=== PATIENT | male | born 1950 | race Caucasian/White ===

== ENCOUNTER 2024-04-04 18:41 | Inpatient (IN) | payer MEDICARE, SELFPAY ==
[2024-04-04] VITALS (8 sets, daily range): BP systolic 111–127; BP diastolic 73–82; PULSE 61–85; RESP 16–19; TEMP 36.7–36.8; O2SAT 91–97; BMI 19.1
--- NOTE | 2024-04-04 19:00 | ECG_ITS ---
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
--- NOTE | 2024-04-04 19:16 | XRR_ITS ---
PROCEDURE INFORMATION: Exam: XR Chest Exam date and time: 04/04/2024 7:30 PM Age: 73 years old Clinical indication: Shortness of breath and other: Weakness TECHNIQUE: Imaging protocol: Radiologic exam of the chest. Views: 1 view. COMPARISON: No relevant prior studies available. FINDINGS: Lungs: There are emphysematous changes in the lungs. COPD morphology of the chest. There is scarring and/or atelectasis at the lung bases. Pleural spaces: No large pleural effusion. There is minimal blunting of the left costophrenic angle which may be related to scarring and/or pleural thickening. A small pleural effusion cannot be excluded. Heart/Mediastinum: Unremarkable. No cardiomegaly. Bones/joints: Unremarkable. XR/XR chest 1V portable [id number] IMPRESSION: There are changes consistent with COPD as described above.
--- NOTE | 2024-04-04 19:16 | USR_ITS ---
PROCEDURE INFORMATION: Exam: US Duplex Bilateral Lower Extremity Arteries Exam date and time: 04/04/2024 8:04 PM Age: 73 years old Clinical indication: Leg, lower; Patient HX: Bilateral lower extremity swelling and pain. Long-term smoker, continues smoking. ; Additional info: Claudication TECHNIQUE: Imaging protocol: Real-time ultrasound scan of the arteries of the bilateral lower extremities with 2-D louise scale, color Doppler flow and spectral waveform analysis. Images documented and saved. COMPARISON: [place] [id number] 04/04/2024 7:36 PM FINDINGS: Right common femoral artery: Normal peak systolic velocities. No hemodynamically significant stenosis. Normal waveform. Right superficial femoral artery: Proximal right superficial femoral artery peak systolic velocity is mildly elevated at 151 cm/s. This corresponds to between 30 and 49% stenosis. Normal waveform. Right popliteal artery: No occlusion or significant stenosis. Normal waveform. Right calf/foot arteries: No occlusion or significant stenosis in the visualized arteries. Normal waveforms. Dorsalis pedis artery is patent. Left common femoral artery: No occlusion or significant stenosis. Normal waveform. Left superficial femoral artery: No occlusion or significant stenosis. Normal waveform. Left popliteal artery: No occlusion or significant stenosis. Normal waveform. Left calf/foot arteries: No occlusion or significant stenosis in the visualized arteries. Normal waveforms. Dorsalis pedis artery [place] patent. US/[place] [id number] IMPRESSION: Proximal right superficial femoral artery peak systolic velocity is mildly elevated at 151 cm/s. This corresponds to between 30 and 49% stenosis.
--- NOTE | 2024-04-04 19:16 | USR_ITS ---
PROCEDURE INFORMATION: Exam: US Duplex Lower Extremity Veins, Bilateral Exam date and time: 04/04/2024 7:36 PM Age: 73 years old Clinical indication: Pain; Leg, lower; Bilateral; Additional info: Bilateral lower extremity pain and swelling. TECHNIQUE: Imaging protocol: Real-time duplex ultrasound of the bilateral extremities with 2-D louise scale, color Doppler flow and spectral waveform analysis including responses to compression and other maneuvers (when performed) with image documentation. Complete exam focused on the lower extremity veins. COMPARISON: No relevant prior studies available. FINDINGS: Right deep veins: Unremarkable. The common femoral, femoral, proximal profunda femoral and popliteal veins are patent without thrombus. Normal Doppler waveforms. Normal compressibility and/or augmentation response. Left deep veins: Unremarkable. The common femoral, femoral, proximal profunda femoral and popliteal veins are patent without thrombus. Normal Doppler waveforms. Normal compressibility and/or augmentation response. Superficial veins: Greater saphenous veins at the saphenofemoral junctions are patent bilaterally without thrombus. Soft tissues: Unremarkable. US/CV venous duplex [facility] [id number] IMPRESSION: No evidence of deep vein thrombosis.
--- NOTE | 2024-04-04 19:38 | ED_ITS ---
HPI - Extremity Problem 2 General: Chief complaint: Extremity Injury, Lower Stated complaint: SOB pulse low. no energy Time Seen by Provider: 04/04/24 19:07 History of Present Illness: 73-year-old man who presents to the [facility] room with several complaints. He says primarily he is worried about that he has been weak and having exertional dyspnea. Says he gets short of breath with very little exertion. Says he is also been extremely sleepy. He says he will fall asleep during conversation. He has been sleeping for hours at home. He does not get up out of his chair very often. [place] to the emergency room. He is also has swelling in his feet and legs. He has pain in his feet. He describes claudication symptoms that his feet hurt much worse whenever he walks. He says he has a black toe. This has since improved. He has some red wounds on his shins and calves. He says a neighbor who is a nurse has been helping him with those. He has some clear plastic bandaging over them. No fevers. He does have some cough. Related Data Allergies Allergy/AdvReac Type Severity Reaction Status Date / Time Sulfa (Sulfonamide Allergy ALGY-Rash Verified 04/04/24 19:02 Antibiotics) Review of Systems 2 Narrative: Constitutional symptoms: Negative except as documented in HPI. Skin symptoms: Negative except as documented in HPI. Eye symptoms: Negative except as documented in HPI. ENMT symptoms: Negative except as documented in HPI. Respiratory symptoms: Negative except as documented in HPI. Cardiovascular symptoms: Negative except as documented in HPI. Gastrointestinal symptoms: Negative except as documented in HPI. Genitourinary symptoms: Negative except as documented in HPI. Musculoskeletal symptoms: Negative except as documented in HPI. Neurologic symptoms: Negative except as documented in HPI. Psychiatric symptoms: Negative except as documented in HPI. Endocrine symptoms: Negative except as documented in HPI. Physical Exam 2 Narrative: EXAM NARRATIVE: General: Alert, no acute distress. Skin: Warm, dry. Red excoriated areas on the bilateral legs. Head: Normocephalic, atraumatic. Neck: Supple, trachea midline. Eye: Extraocular movements are intact. Ears, nose, mouth and throat: mucosa moist. Cardiovascular: Regular, Normal peripheral perfusion. 2-3+ pitting edema of the feet and shins. Respiratory: Lungs are clear to auscultation, respirations are non-labored, breath sounds are equal, Symmetrical chest wall expansion. Gastrointestinal: Soft, Nontender, Non distended Musculoskeletal: Normal ROM, no deformity. Neurological: Alert and oriented, No focal neurological deficit observed. Psychiatric: Cooperative, appropriate mood & affect. Course 2 Vital Signs: Vital signs: Vital Signs Temperature 98.2 F 04/04/24 18:55 Pulse Rate 72 04/04/24 20:00 Respiratory Rate 18 04/04/24 20:00 Blood Pressure 127/76 04/04/24 20:00 Pulse Oximetry 91 04/04/24 20:00 Oxygen Delivery Me thod Room Air 04/04/24 18:55 MDM - Extremity (Nontraumatic) Medical Decision Making Differential diagnosis for patient with shortness of breath includes but is not limited to and based on the above HPI, review of systems and physical exam: Pneumonia. Bronchitis. Asthma or COPD with acute exacerbation. Acute coronary syndrome / CA. Pulmonary embolism. Anxiety. Congestive heart failure. Viral infections including influenza and Covid-19. Atrial fibrillation. Anxiety. Pleural effusion. Pneumothorax. Orders placed to evaluate differential diagnosis based on the above differential, HPI and physical exam EKG: Time 1848. Rate 84. Normal sinus rhythm, No ST-T changes, no ectopy, normal MS & QRS intervals, This was reviewed and interpreted by myself the ER physician at 1851. Chest x-ray: No acute process. Hyperexpansion/emphysematous changes. No cardiomegaly. No infiltrate. No pneumothorax. This was reviewed and interpreted by myself the ER physician. Ultrasound of the lower extremities both venous and arterial. There are no occlusions and no DVT. I discussed the findings with the supply chain tech. Official read is pending. Lab Review: Laboratory results were reviewed and interpreted by myself the emergency room physician. Mild leukocytosis with a white count of 12.6. Hemoglobin is slightly low at 10.2. BUN and creatinine are elevated at 31 and 1.3. I do not have any comparison lab work. His CRP is quite elevated at 106. proBNP is elevated at 1470. With his swelling and his elevation in his proBNP he might have some CHF. However his heart size is normal I reviewed the patient's medical record. Reexamination: Patient remained stable. No increased work of breathing. No altered mental status. No focal motor deficits. Consultation: I spoke with Dr. Cuello who is on-call for the hospitalist service. He agrees to admission. Assessment and plan: Non-ST elevation myocardial infarction Congestive heart failure Edema Exertional dyspnea -I discussed the patient with the hospitalist on-call who is admitting the patient. - Discussed findings and plan with patient. Answered any questions. - All laboratory values were reviewed and interpreted personally by myself, the ER physician - All imaging was reviewed and interpreted personally by myself, the ER physician. - Evaluation and treatment of this problem were appropriate in the emergency setting Lab Data 04/04/24 19:55 04/04/24 19:55 Radiology Impressions Chest X-Ray 04/04/24 19:16 IMPRESSION: There are changes consistent with COPD as described above. Laboratory Results WBC 12.63 10^3/uL (3.29-11.43) H 04/04/24 19:55 RBC 3.74 10^6/uL (3.85-5.65) L 04/04/24 19:55 Hgb 10.20 g/dL (11.27-16.99) L 04/04/24 19:55 Hct 33.6 % (37-53) L 04/04/24 19:55 MCV 89.8 fl (82-101) 04/04/24 19:55 MCH 27.3 pg (27-33) 04/04/24 19:55 MCHC 30.4 g/dL (30-55) 04/04/24 19:55 RDW 17.6 % (12.1-15.1) H 04/04/24 19:55 Plt Count 370 10^3/cmm (157-399) 04/04/24 19:55 MPV 8.1 fL (7.4-10.4) 04/04/24 19:55 Neut % (Auto) 64.9 % 04/04/24 19:55 Lymph % (Auto) 17.2 % 04/04/24 19:55 [place]ee % (Auto) 7.4 % 04/04/24 19:55 Eos % (Auto) 9.4 % 04/04/24 19:55 Baso % (Auto) 0.5 % 04/04/24 19:55 Neut # (Auto) 8.21 10^3/uL (1.8-7.7) H 04/04/24 19:55 Lymph # (Auto) 2.2 10^3/uL (0.8-4.8) 04/04/24 19:55 [place]ee # (Auto) 0.9 10^3/uL (0.2-0.9) 04/04/24 19:55 Eos # (Auto) 1.2 10^3/uL (0.0-0.8) H 04/04/24 19:55 Baso # (Auto) 0.1 10^3/uL (0.0-0.1) 04/04/24 19:55 Nucleated RBC % (auto) 0 % 04/04/24 19:55 Nucleated RBCs # 0.0 /100WBC 04/04/24 19:55 Sodium 135 mmol/L (136-145) L 04/04/24 19:55 Potassium 3.8 mmol/L (3.5-5.1) 04/04/24 19:55 Chloride 98 mmol/L (98-107) 04/04/24 19:55 Carbon Dioxide 30 mmol/L (22-29) H 04/04/24 19:55 Anion Gap 10.8 (5-19) 04/04/24 19:55 BUN 31 mg/dL (8-23) H 04/04/24 19:55 Creatinine 1.3 mg/dL (0.7-1.2) H 04/04/24 19:55 GFR Calculation Not Reportable 04/04/24 19:55 Glucose 84 mg/dL (65-115) 04/04/24 19:55 Calculated Osmolality 286 mOsm/kg (285-295) 04/04/24 19:55 Lactic Acid 1.1 mmol/L (0.5-2.2) 04/04/24 19:55 Calcium 8.5 mg/dL (8.5-10.5) 04/04/24 19:55 Total Bilirubin 0.2 mg/dL (0.15-1.2) 04/04/24 19:55 AST 24 U/L (0-40) 04/04/24 19:55 ALT 14 U/L (0-41) 04/04/24 19:55 Alkaline Phosphatase 66 U/L (40-130) 04/04/24 19:55 Troponin T Baseline 220 ng/L (0-15) H* 04/04/24 19:55 C-Reactive Protein 106.4 mg/L (0.0-4.9) H 04/04/24 19:55 NT-Pro-B Natriuret Pep 1470 pg/mL (0-125) H 04/04/24 19:55 Total Protein 6.5 g/dL (6.6-8.7) L 04/04/24 19:55 Albumin 3.3 g/dL (3.5-5.2) L 04/04/24 19:55 Globulin 3.2 g/dL (1.3-4.6) 04/04/24 19:55 All radiology interpretation(s) finalized by discharge Discharge Plan Discharge Patient Disposition: Admitted As Inpatient Clinical Impression: Non-ST elevated myocardial infarction, Congestive heart failure, Edema, Exertional dyspnea Condition: Stable Coding Level of Care Code ED Automobile Tester for Belem Shah
[2024-04-04 20:02] LABS: Basophils # 0.1 10^3/uL (0.0-0.1); Basophils % 0.5 %; Eosinophils # 1.2 10^3/uL (0.0-0.8); Eosinophils % 9.4 %; Hematocrit 33.6 % (37-53); Lymphocytes # 2.2 10^3/uL (0.8-4.8); Lymphocytes % 17.2 %; Mean Corpuscular HGB Conc 30.4 g/dL (30-55); Mean Corpuscular Hemoglobin 27.3 pg (27-33); Mean Corpuscular Volume 89.8 fl (82-101); Mean Platelet Volume 8.1 fL (7.4-10.4); Monocytes # 0.9 10^3/uL (0.2-0.9); Monocytes % 7.4 %; Neutrophils # 8.21 10^3/uL (1.8-7.7); Neutrophils % 64.9 %; Nucleated Red Blood Cells % 0 %; Platelet Count 370 10^3/cmm (157-399); Red Blood Count 3.74 10^6/uL (3.85-5.65); Red Cell Distribution Width 17.6 % (12.1-15.1); White Blood Count 12.63 10^3/uL (3.29-11.43)
[2024-04-04 20:18] LABS: Lactic Sepsis W/Reflex 1.1 mmol/L (0.5-2.2)
[2024-04-04 20:35] LABS: Alanine Aminotransferase 14 U/L (0-41); Albumin Level 3.3 g/dL (3.5-5.2); Alkaline Phosphatase 66 U/L (40-130); Anion Gap 10.8 (5-19); Aspartate Amino Transferase 24 U/L (0-40); Blood Urea Nitrogen 31 mg/dL (8-23); C Reactive Protein 106.4 mg/L (0.0-4.9); Calcium 8.5 mg/dL (8.5-10.5); Carbon Dioxide 30 mmol/L (22-29); Chloride 98 mmol/L (98-107); Creatinine Clr Calc Pharmacy 41.9662; Globulin 3.2 g/dL (1.3-4.6); Glucose 84 mg/dL (65-115); NT Pro B Type Natriuretic Pept 1470 pg/mL (0-125); Osmolality Calculated 286 mOsm/kg (285-295); Potassium 3.8 mmol/L (3.5-5.1); Sodium 135 mmol/L (136-145); Total Bilirubin 0.2 mg/dL (0.15-1.2); Total Protein 6.5 g/dL (6.6-8.7)
[2024-04-04 20:44] LABS: Troponin(5th) Baseline 220 ng/L (0-15)
--- NOTE | 2024-04-04 21:23 | ECG_ITS ---
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 Measurements Intervals [place] Rate: 57 P: 48 HI: 130 QRS: 48 QRSD: 89 T: 66 QT: 428 QTc: 418 Interpretive Statements SINUS BRADYCARDIA WITH SINUS ARRHYTHMIA Compared to ECG 04/04/2024 18:48:59 Sinus rhythm no longer present Electronically Signed On 04-06-2024 22:36:10 CDT by Mary Grace Gaspar M.D. [id number]
--- NOTE | 2024-04-04 21:31 | P.HP_ITS ---
Providers/Chief Complaint 2 Admitting Physician: Haider Cuello Chief Complaint: SOB pulse low. no energy History of Present Illness Pleasant 73-year-old gentleman who moved down here about 3 and half years ago from [place], has not established with a primary provider, has history of smoking, beginning emphysema, apart from also some insomnia for which she takes some trazodone and smokes some marijuana intermittently, denies history of other medical problems, has not been feeling well for the last several months which has been worsening with significant exertional fatigue, intolerance, dyspnea on exertion, lower extremity edema which has been causing pain in his dorsal feet. He states he came in to get things checked at [facility] about a month ago but states not much workup was done. He also does not really like staying in hospital says he gets cold. He denies chest pain or pressure, although reportedly had noted some chest pressure in the past to the ER physician. He had not had any fever, chills, sore throat, no sneezing coughing or other symptoms of upper or lower respiratory infection, no nausea vomiting or diarrhea. In ER he is found to have a leukocytosis 12.6, afebrile, sodium 135, BUN 31, creatinine 1.3, with baseline troponin 220, NT proBNP 1470. Albumin 3.3. No ST elevation on EKG. Venous duplex in ER without evidence of DVT. Arterial duplex with proximal right superficial femoral artery peak systolic velocity mildly elevated at 151 cm/s, corresponding to 30-49% stenosis. Chest x-ray with changes consistent with COPD. Review of Systems 2 Const: Reports: fatigue; Denies: fever(s), chills, body aches or malaise Eyes: Denies: change in vision ENMT: Denies: throat pain, oral sores or ear or mastoid pain Card: Reports: edema, swelling of feet/ankles and dyspnea on exertion; Denies: pre-syncope Resp: Denies: productive cough, change in phlegm color or hemoptysis GI: Denies: abdominal pain, nausea, vomiting, diarrhea, constipation, hematochezia or melena : Denies: flank pain, difficulty urinating, urinary frequency or hematuria Musc: Denies: back pain, joint swelling or joint redness Skin/Breast: Denies: rash or new lesions Neuro: Denies: headache(s) or confusion Medications/Allergies Allergies Allergy/AdvReac Type Severity Reaction Status Date / Time Sulfa (Sulfonamide Allergy ALGY-Rash Verified 04/04/24 19:02 Antibiotics) PFSH Acute 2 PFSH: Medical History (Updated 04/04/24 @ 21:39 by Haider Cuello MD) Emphysema lung Insomnia Family History (Updated 04/04/24 @ 21:34 by Haider Cuello MD) Sister Aneurysm Father Heart disease, Onset Age: 82 Social History (Updated 04/04/24 @ 21:35 by Haider Cuello MD) Smoking and tobacco/nicotine status: current every day tobacco/nicotine user cigarettes [ Other cigarette details: Weak tobacco ] Alcohol intake: never Substance/Drug Use: current Substance/Drug use frequency: few times a week Substance/Drug use type: Marijuana Lives independently: Yes Household members: none Vitals/I&O/Wt Last Vital Signs Temp 98.2 F 04/04/24 18:55 Pulse 62 04/04/24 20:30 Resp 17 04/04/24 20:30 BP 123/80 04/04/24 20:30 Pulse Ox 91 04/04/24 20:30 O2 Del Method Room Air 04/04/24 18:55 Weight last 48 hrs Weight 52.163 kg Physical Exam 2 Const: COMMON NORMALS: patient oriented x3 and alert GENERAL APPEARANCE: c ooperative ORIENTATION/CONSCIOUSNESS: Yes awake HENMT: COMMON NORMALS: oropharynx normal Neck/C-Spine: COMMON NORMALS: no JVD Resp: COMMON NORMALS: normal respiratory effort and clear to auscultation bilaterally AUSCULTATION: clear to auscultation bilaterally Cardio: COMMON NORMALS: no JVD, regular rhythm, S1 normal heart sound present, S2 normal heart sound present and No murmurs present (Cardio) RHYTHM: regular rhythm HEART SOUNDS: S1 normal heart sound present and S2 normal heart sound present GI: COMMON NORMALS: Normal to inspection, nondistended, normoactive bowel sounds present, Soft to palpation and non-tender PALPATION: Yes Soft to palpation Extremity: COMMON NORMALS: no joint enlargement GENERAL: Yes edema (3+ BL edema, weeping) Neuro: COMMON NORMALS: patient oriented x3 and moves all extremities S ENSORIUM/ORIENTATION: Yes alert Skin: NARRATIVE SKIN EXAM: Skin breakdown with weeping with bullae, cracks of skin of lower extremities below the knees. Data 04/04/24 19:55 04/04/24 19:55 A&P Assessment and plan (1) Congestive heart failure: Acute congestive heart failure, suspected acute right-sided systolic heart failure, possibly following an NSTEMI. Severe exertional limitation. Reviewed vitals, CBC, CMP, troponin, NT proBNP, EKG on my interpretation with sinus bradycardia without evidence of current ischemia but with T wave flattening in aVL and V2, pending official read. Reviewed CRP, venous duplex, arterial duplex lower extremities, chest x-ray, ER note, discussed with ER provider. Additional assessment and management of possible NSTEMI as below. Complete troponin EKG series, obtain TTE. Monitor on telemetry. Additionally with significant 3+ lower extremity edema bilaterally, no DVT. Lasix 40 mg IV twice daily. Monitor for risk of hypovolemia, AGNES, with abnormal baseline kidney function on presentation, risk of electrolyte deficiency, reassess chemistry. Check magnesium. Monitor ERICA. Volume status. Cardiac diet. He additionally is reporting some cold intolerance. Will check TSH as well. (2) Non-ST elevated myocardial infarction: Currently without chest pain, but supposedly did report some chest pressure intermittently recently to the ER physician. Although denies it to me. Troponin baseline 220. NT proBNP 1470. Does have mild AGNES versus CKD, BUN/creatinine 1.3, but troponin elevation appears out of proportion as well as with acute decompensated CHF. Additional workup for possible NSTEMI, complete troponin EKG series, monitor telemetry with risk of arrhythmia, assess TTE. Treat CHF as above. Start aspirin, hold off beta-giovanni for now with CHF and does seem to have some bradycardia, to her heart rate. May benefit from statin. Smoking cessation although is not ready. Further workup may include stress testing versus angiogram depending on clinical course and further findings. (3) Exertional dyspnea: May be multifactorial with decompensated CHF, possible NSTEMI recently, possibly factor also of contributing emphysema, not formally diagnosed COPD. Additional assessment and management of cardiac issues as above. Will add DuoNeb as needed. Would benefit from PFT. With significant physical deconditioning, has been having very difficult time getting around and doing things at home. He overall does not like hospitals, also gets cold easily and worries that this will happen in the hospital room as well, but is agreeable to stay for additional assessment treatment currently. Will ask for PT evaluation due to physical deconditioning as well. Additionally case management consultation for disposition planning and he will need to establish with a PCP. (4) AGNES (acute kidney injury): AGNES versus CKD, unknown baseline, on review of kidney function BUN 31, creatinine 1.3, possibly secondary to decompensated right-sided heart failure with congestive nephropathy, treat as above. Reassess kidney function. Monitor intake and output. Plan Smoking addiction: Discussed with cessation for 4 minutes. He is not ready to quit. He states he will not be able to quit at home. He lives by himself. He states he does not smoke much and he smokes weak tobacco . Discussed with him risks of smoking, benefits of cessation. He understands, is not ready at this time. He is agreeable that he will likely need nicotine supplementation while in the hospital, agreeable to nicotine patches and lozenges. Emphysema: At the moment without evidence of COPD exacerbation. Does not have formally diagnosed COPD. May be contributing to his exertional dyspnea and intolerance. Will add breathing treatments as needed. Would benefit from outpatient PFT. Smoking cessation. Insomnia: States that at home he smokes marijuana occasionally and takes trazodone together with which help him sleep. Trazodone helps him inconsistently, marijuana starts working before the trazodone does. Discussed with him we will add trazodone as needed 1 in the hospital. Attestations 2 Medical Necessity Statement*: Admission of over 2 midnights anticipated for assessment management of acute decompensated right heart failure, possible NSTEMI, severe exertional intolerance and gentleman with additional comorbidities as above. Diagnoses Congestive heart failure I50.9 Non-ST elevated myocardial infarction I21.4 Exertional dyspnea R06.09 AGNES (acute kidney injury) N17.9
--- NOTE | 2024-04-04 22:11 | USCV_ITS ---
Papo White Age: 73 Gender: M : 1950 Exam Date: 04/04/2024 22:21 Ordering Phys: Haider Cuello MD Technologist: ABIMBOLA Exam Location: [facility] [place] Indication: chf, nstemi, exertional dyspnea, weakness, BLE edema BP: 125 / 82 HR: 57 Rhythm: Sinus Technical Quality: Adequate MEASUREMENTS (Male / Female) Normal Values 2D ECHO LV Diastolic Diameter PLAX 3.6 cm 4.2 - 5.9 / 3.9 - 5.3 cm IVS Diastolic Thickness 1.2 cm 0.6 - 1.0 / 0.6 - 0.9 cm IVS Systolic Thickness 1.7 cm LVPW Diastolic Thickness 1.5 cm 0.6 - 1.0 / 0.6 - 0.9 cm LVPW Systolic Thickness 1.5 cm LVOT Diameter 1.7 cm LV Ejection Fraction 2D Teich 54.8 % LV Ejection Fraction MOD 4C 73.0 % LV Ejection Fraction MOD 2C 64.9 % LV Ejection Fraction 2C AL 63.4 % LA Diameter 2.9 cm Aorta at Sinotubular Diameter 2.8 cm IVC Diameter 1.9 cm M-MODE LA Ao Ratio MM 1.1 AV Cusp Separation MM 1.5 cm DOPPLER AV Peak Velocity 86.0 cm/s LVOT Peak Velocity 63.0 cm/s AV Area Cont Eq vti 1.8 cm squared AV Area Cont Eq pk 1.6 cm squared MV Peak Velocity 84.0 cm/s MV Area PHT 3.2 cm squared Mitral E to A Ratio 1.2 TR Peak Velocity 236.0 cm/s TR Peak Gradient 22.3 mmHg TV Peak E Velocity 45.0 cm/s Right Atrial Pressure 3.0 mmHg Pulmonary Artery Systolic Pressu 25.3 mmHg PV Peak Velocity 85.0 cm/s FINDINGS Left Ventricle Normal left ventricular size, systolic function and wall thickness, with no regional wall motion abnormalities. Left ventricular ejection fraction is estimated at 55 %. Grade I/IV diastolic dysfunction (abnormal relaxation filling pattern), normal to mildly elevated filling pressures. Right Ventricle The right ventricle is normal in size and function. Right Atrium The right atrium is normal in size. Left Atrium The left atrium is normal in size. Mitral Valve Thickened mitral valve. No mitral valve stenosis. Mild mitral valve regurgitation. Aortic Valve Moderate aortic valve calcification. No aortic valve stenosis. Thickening of Aortic valve.mild aortic valve regurgitation. Tricuspid Valve Structurally normal tricuspid valve without significant stenosis or regurgitation. Pulmonary artery systolic pressure is normal. Pulmonic Valve Structurally normal pulmonic valve without significant stenosis. There is no pulmonic regurgitation. Pericardium Normal pericardium without effusion. Aorta Normal ascending aorta dimension. IVC The inferior vena cava appears normal. CONCLUSIONS Normal left ventricular size, systolic function and wall thickness, with no regional wall motion abnormalities. Left ventricular ejection fraction is estimated at 55 %. Grade I/IV diastolic dysfunction (abnormal relaxation filling pattern), normal to mildly elevated filling pressures. Moderate aortic valve calcification. No aortic valve stenosis. Thickening of Aortic valve.mild aortic valve regurgitation. Thickened mitral valve. No mitral valve stenosis. Mild mitral valve regurgitation. There is no pericardial effusion. Right atrial pressure is around 5 mm of mercury. Teena Dinero MD (Electronically Signed) Final Date: 05 April 2024 07:59 S
[2024-04-04] MEDS: nicotine 21 mg Patch 1 PATCH TRANSDERMA (22:28)
[2024-04-04 22:54] LABS: Troponin 5 2HR 248.9 ng/L (0-15); Troponin 5 2HR Delta 28.9 ABS# (0-10)
[2024-04-04] MEDS: aspirin 325 mg Tablet PO (23:13)
[2024-04-04] MEDS: enoxaparin 100 mg/mL Syringe 50 MG SUBCUT (23:13)
[2024-04-04] MEDS: TRAMadol 50 mg Tablet PO (23:13)
[2024-04-04] MEDS: FUROsemide 10 mg/mL SDV 4mL 40 MG IVP (23:13)
[2024-04-04] MEDS: nicotine 4 mg lozenge MUCOUS MEM (23:14)
[2024-04-04] MEDS: hyDROXYzine 25 mg Capsule 50 MG PO (23:15)
[2024-04-05] VITALS (12 sets, daily range): BP systolic 96–126; BP diastolic 64–83; PULSE 60–87; RESP 15–23; TEMP 36.3–37; O2SAT 90–96
--- NOTE | 2024-04-05 01:17 | ECG_ITS ---
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 Measurements Intervals [place] Rate: 74 P: 65 FL: 142 QRS: 45 QRSD: 90 T: 64 QT: 398 QTc: 442 Interpretive Statements SINUS RHYTHM Compared to ECG 04/04/2024 21:23:47 Sinus bradycardia no longer present Sinus arrhythmia no longer present Electronically Signed On 04-06-2024 22:36:45 CDT by Mary Grace Gaspar M.D. [id number]
[2024-04-05 02:19] LABS: Basophils # 0.1 10^3/uL (0.0-0.1); Basophils % 0.5 %; Eosinophils # 1.5 10^3/uL (0.0-0.8); Eosinophils % 12.1 %; Hematocrit 32.8 % (37-53); Lymphocytes # 1.7 10^3/uL (0.8-4.8); Lymphocytes % 13.6 %; Mean Corpuscular HGB Conc 31.7 g/dL (30-55); Mean Corpuscular Hemoglobin 27.5 pg (27-33); Mean Corpuscular Volume 86.8 fl (82-101); Monocytes # 0.9 10^3/uL (0.2-0.9); Monocytes % 7.1 %; Neutrophils # 8.12 10^3/uL (1.8-7.7); Neutrophils % 66.4 %; Nucleated Red Blood Cells % 0 %; Platelet Count 368 10^3/cmm (157-399); Red Blood Count 3.78 10^6/uL (3.85-5.65); Red Cell Distribution Width 17.3 % (12.1-15.1); White Blood Count 12.24 10^3/uL (3.29-11.43)
[2024-04-05] MEDS: morphine 4 mg/mL SDV 1 mL 2 MG IVP ×2 (02:40→06:40)
[2024-04-05 02:42] LABS: Troponin 5 6HR 272.4 ng/L (0-15); Troponin 5 6HR Delta 52.4 ng/L (0-12)
[2024-04-05 02:47] LABS: Anion Gap 13.5 (5-19); Blood Urea Nitrogen 30 mg/dL (8-23); Calcium 8.7 mg/dL (8.5-10.5); Carbon Dioxide 31 mmol/L (22-29); Chloride 100 mmol/L (98-107); Creatinine Clr Calc Pharmacy 45.4634; Glucose 150 mg/dL (65-115); Magnesium 2.1 mg/dL (1.7-2.3); Osmolality Calculated 301 mOsm/kg (285-295); Potassium 3.5 mmol/L (3.5-5.1); Sodium 141 mmol/L (136-145); Thyroid Stimulating Hormone 7.35 uIU/mL (0.27-4.20)
[2024-04-05] MEDS: FUROsemide 10 mg/mL SDV 4mL 40 MG IVP (04:40)
[2024-04-05] MEDS: nicotine 4 mg lozenge MUCOUS MEM ×2 (04:44→12:20)
--- NOTE | 2024-04-05 06:27 | NUR.SHIFT ---
Patient since arrival to unit, was complaining about pain frequently. This nurse gave Tramdol when first admitted, then he was still in serve pain about an hour after a dose of Tramdol, so this nurse contacted the doctor got an order for morphine 2mg Q4H, dose given of morphine, about 40-60 minutes after the dose patient complained that the pain medicine did not do anything and was requesting frequently throughout the morning that we should give him extra dose even though another dose could not be administer yet. This nurse informed him that we can give him another dose of morphine at 0640, and then the tramdol could not be given until 0720.
[2024-04-05] MEDS: acetaminophen 325 mg Tablet 650 MG PO (08:04)
[2024-04-05] MEDS: hyDROXYzine 25 mg Capsule 50 MG PO (08:04)
[2024-04-05] MEDS: TRAMadol 50 mg Tablet PO (08:04)
[2024-04-05] MEDS: sucralfate 1 gm Tablet PO (08:04)
--- NOTE | 2024-04-05 08:52 | CT_ITS ---
WS: [id number] CT ABDOMEN PELVIS TECHNIQUE: Noncontrast CT of the abdomen and pelvis with coronal and sagittal reformatted images. CLINICAL INFORMATION: weight loss COMPARISON: None. DLP: 300.[address] scans at [facility] use at least one of these dose optimization techniques: automated e xposure control; mA and/or kV adjustment per patient size (includes targeted exams where dose is matc hed to clinical indication); or iterative reconstruction. FINDINGS: Cholecystectomy. Noncontrast liver appears normal. A few small hepatic cysts. Fluid distended stomach . Normal spleen. RIGHT adrenal gland is normal. Slightly nodular LEFT adrenal gland. Normal caliber a bdominal aorta. Mild aortic calcification. Noncontrast pancreas appears normal. Prior kyphoplasty prerna nges L3. Chronic anterior wedging. No hydronephrosis in either kidney. No abdominal lymphadenopathy. No pelvic lymphadenopathy. Extensiv e sigmoid diverticulosis. No evidence of acute diverticulitis. Normal appendix. Tiny fat-containing u mbilical hernia. No inguinal lymphadenopathy. CT/CT abdomen pelvis wo con [id number] IMPRESSION: 1. Extensive sigmoid diverticulosis. No evidence of acute diverticulitis. 2. Cholecystectomy. 3. Low-attenuation lesions in the LEFT hepatic lobe likely small hepatic cysts . 4. No hydronephrosis in either kidney. 5. No abdominal or pelvic lymphadenopathy. 6. Prior kyphoplasty changes L3. 7. No other suspicious findings.
--- NOTE | 2024-04-05 08:52 | CT_ITS ---
WS: [id number] CTA OF THE CHEST WITH PULMONARY EMBOLISM PROTOCOL TECHNIQUE: High-resolution contrast enhanced CTA of the chest with coronal and sagittal reformatted i mages with pulmonary embolism protocol. MIP images are also reviewed. CLINICAL INFORMATION: shortness of breath, nstemi COMPARISON: None. DLP: 249.[address] scans at [facility] use at least one of these dose optimization techniques: automated e xposure control; mA and/or kV adjustment per patient size (includes targeted exams where dose is matc hed to clinical indication); or iterative reconstruction. FINDINGS: Proximal main pulmonary arteries are normal. No evidence of pulmonary embolus. Advanced chronic emphy sematous changes. Hazy opacities in the lung bases with bibasilar atelectasis. Normal caliber thoraci c aorta. Aortic calcification. Coronary calcification. No mediastinal or hilar lymphadenopathy. No ax illary lymphadenopathy. Nodular LEFT adrenal gland. Fluid distended stomach. Cholecystectomy clips. Celiac and SMA are patent . Mild thoracic curve. CT/CT angio chest PE protcl [id number] IMPRESSION: 1. No evidence of pulmonary embolus. 2. Advanced chronic emphysematous changes. 3. Slight hazy opacities in the lung bases with bibasilar atelectasis.
[2024-04-05 08:55] LABS: Free T4 Free Thyroxine 1.19 ng/dL (0.82-1.77); Procalcitonin 1.43 ng/mL (0-0.5)
[2024-04-05 09:05] LABS: Estmated Average Glucose 105; Hemoglobin A1C 5.3 % (4.0-6.0)
[2024-04-05 09:06] LABS: Chol HDL Ratio 3.58 mg/dL (1.0-5.00); Cholesterol 136 mg/dL (0-200); HDL Cholesterol 38 mg/dL (60-100); LDL Cholesterol Calculated 81 mg/dL (50-129); LDL HDL Ratio 2.13 RATIO (0.00-3.22); Triglycerides 83 mg/dL (0-150)
[2024-04-05] MEDS: iohexol 350 mg/mL 500 mL Btl (per mL) IV (09:43)
[2024-04-05 09:49] LABS: Troponin T (5th) Once 322 ng/L (0-15)
--- NOTE | 2024-04-05 09:54 | PC.CHAP ---
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 [] Patient/Family/Request visit [] Outpatient visit [] Follow-up visit [] Physician referral [] Code/Alert [x] Routine visit [] Staff referral [] Actively dying [] Patient sleeping [] Family support [] [] Out of room [] Palliative care [] [] Receiving care in room [] Pre-surgical visit [] Trauma [] Long length of stay [] ICU visit [] Other: Relational/Emotional Strength [x] Patient feels connected with others/family/visitors/staff [] Distress [] Loneliness/isolation [] Abandonment Spirituality of Patient [x] Person of Kezia [] Attends Sabianist of their Kezia [x] Believes in Prayer [] Reads Bible or Worship materials [] There are Spiritual issues to be addressed Manager Transfusion Interventions [x] Prayer [x] Active listening [] Non-anxious presence [x] Spiritual/emotional support [] Crisis/trauma care [] Spiritual counseling [] Bereavement support [] Provided bereavement packet [] Provided Bible/devotional materials [] Provided toy/stuffed animal, coloring book to patient or family member [] Provided Communion [] Anointing/[place] [] Salvation [x] Completed spiritual assessment [] Other: Impact on Illness or Injury [] Angry [] Fearful [] Anxious [] Often cries [] Exhaustion [] Unable to work [] Unable to attend yazdanism [] Unable to walk/stand [] Unable to read [] Unable to drive [] Unable to eat/drink [] Unable to sleep [] Unable to be with family [] Patient intubated [] Other: Summary Time spent with patient 5 min
[2024-04-05] MEDS: enoxaparin 60 mg/0.6 mL Syringe 50 MG SUBCUT ×2 (10:04→23:06)
[2024-04-05] MEDS: gabapentin 300 mg Capsule PO ×2 (10:05→20:21)
[2024-04-05] MEDS: potassium chloride ER 20 mEq Tablet 40 MEQ PO (10:06)
[2024-04-05] MEDS: pantoprazole 40 mg SDV IVP ×2 (10:15→20:22)
[2024-04-05 10:25] LABS: D Dimer 8.25 ug/mLFEU (0-0.59)
[2024-04-05] MEDS: cefTRIAXone 1,000 mg SDV 1000 MG IVP (12:20)
[2024-04-05] MEDS: azithromycin 500 MG in sodium chloride 0.9% 250 ML 250 MG IV (12:21)
[2024-04-05] MEDS: simethicone 80 mg Chew PO (12:34)
--- NOTE | 2024-04-05 13:45 | P.CONIM_ITS ---
Providers/Reason For Consult 2 Consulting Physician/Specialty*: BEVERLEY Gaspar MD/cardiology Reason for Consult*: Patient with elevated troponin T Requesting Physician: Dr. Wasserman Attending Physician: Dano Wasserman MD Primary Care Provider: Dr. Wasserman History of Present Illness History of Present Illness Papo White is a 73 year old male with no significant past cardiac history, is admitted to hospital with complaints of weakness, dizziness,loss of appetite and weight loss. He was found to be elevated troponin T. With a significant delta. He has not been having any specific cardiac symptoms. Cardiology consult is requested for further cardiac evaluation recommendations. According the patient, he has been having some amount of weakness and dizziness for the last several months. In September of this year, he had a back surgery in [facility]. Since then, his symptoms started getting worse. He is not able to eat properly send because of the gas buildup in the stomach. He has no chest pain/. He also has been having low-grade fever and chills intermittently. Denies any palpitation. No syncopal episodes. He may have some occasional chest pressure/tightness. He attributes this to the stomach distention/gas He has no previous history for coronary artery disease, myocardial infarction or congestive heart failure. No history for any hypertension or diabetes. He has been having back problems off and on for some time. Whenever his thoracic vertebrae get out of order, he may lose his appetite and also develops some gaseous distention of the abdomen. When the chiropractor puts the vertebrae back in place, he feels better. He loses a lot of weight when this happens. According to him, he might have lost around 40 pounds within the last 6 months or so. He denies any alcohol abuse. He has been using marijuana for pain control for the last 1 year or so. No other substance abuse. His mother, sister and maternal grandfather, all had a brain aneurysm and? Strokes no other relevant family history.. No significant family history for atherosclerotic heart disease. Review of Systems 2 Narrative: CONSTITUTIONAL: Intermittent low-grade fever and weakness as mentioned above EYES: No blurring of vision or other visual disturbances lately. ENT: No hoarseness of voice, auditory disturbances or sore throat. CARDIOVASCULAR: As mentioned above. RESPIRATORY: No significant cough. GASTROINTESTINAL: Anorexia and gaseous distention of the abdomen as mentioned above GENITOURINARY: No dysuria or hematuria. INTEGUMENTARY: No skin rashes or history of skin cancer. NEURO: Episodes of dizziness. Also has numbness of the lower extremities and pain, more so after his back surgery. PSYCHIATRIC: No history of psychosis or major depression. HEMATOLOGIC: No bleeding disorders or significant anemia. ENDOCRINE: No history of polyuria or polydipsia. MUSCULOSKELETAL: Chronic back pain ALLERGY/IMMUNOLOGY: As mentioned above. Medications/Allergies Home Medications Medication Instructions Recorded Confirmed Last Taken Type hydroxyzine HCl 50 mg tablet 50 mg PO TID PRN Anxiety 04/04/24 04/04/24 Unknown History metoclopramide HCl 5 mg tablet 5 mg PO TID PRN Nausea/Bloating 04/04/24 04/04/24 Unknown History ondansetron HCl 4 mg tablet 4 mg PO TID PRN Nausea And Vomiting 04/04/24 04/04/24 Unknown History sucralfate 1 gram tablet 1 g PO QID 04/04/24 04/04/24 04/04/24 History tramadol 50 mg tablet 50 mg PO TID PRN Pain 04/04/24 04/04/24 04/04/24 History Allergies Allergy/AdvReac Type Severity Reaction Status Date / Time Sulfa (Sulfonamide Allergy ALGY-Rash Verified 04/04/24 19:02 Antibiotics) Current Medications Generic Name Dose Route Start Last Admin Trade Name Freq PRN Reason Stop Dose Admin Acetaminophen 650 mg 04/04/24 22:11 04/05/24 08:04 Acetaminophen 325 Mg Tablet PO 650 mg Q6H PRN Administration Mild Pain Or Temp >/= 101 Aspirin 325 mg 04/04/24 22:11 04/04/24 23:13 Aspirin 325 Mg Tablet PO 325 mg BEDTIME RONALD Administration Ceftriaxone Sodium 1,000 mg 04/05/24 10:30 04/05/24 12:20 Ceftriaxone 1,000 Mg Sdv IVP 1,000 mg Q24H RONALD Administration Protocol Enoxaparin Sodium 50 mg 04/05/24 11:00 04/05/24 10:04 Enoxaparin 60 Mg/0.6 Ml Syringe 1 mg/kg (50 mg) 50 mg SUBCUT Administration Q12H RONALD Gabapentin 300 mg 04/05/24 09:00 04/05/24 10:05 Gabapentin 300 Mg Capsule PO 300 mg BID RONALD Administration Hydroxyzine Pamoate 50 mg 04/04/24 22:46 04/05/24 08:04 Hydroxyzine 25 Mg Capsule PO 50 mg TID PRN Administration Anxiety Azithromycin 500 mg/ Sodium 250 mls @ 250 mls/hr 04/05/24 10:30 04/05/24 12:21 Chloride IV 250 mls/hr Q24H RONALD Administration Protocol Nicotine 1 patch 04/04/24 21:45 04/04/24 22:28 Nicotine 21 Mg Patch TRANSDERMA 1 patch BEDTIME RONALD Administration Nicotine Polacrilex 4 mg 04/04/24 21:45 04/05/24 12:20 Nicotine 4 Mg Lozenge MUCOUS MEM 4 mg Q4H PRN Administration NICOTINE CRAVINGS Pantoprazole Sodium 40 mg 04/05/24 09:00 04/05/24 10:15 Pantoprazole 40 Mg Sdv IVP 40 mg Q12H RONALD Administration Simethicone 80 mg 04/05/24 12:18 04/05/24 12:34 Simethicone 80 Mg Chew PO 80 mg QID PRN Administration FLATULENCE Sucralfate 1 gm 04/05/24 09:00 04/05/24 08:04 Sucralfate 1 Gm Tablet PO 1 gm QID RONALD Administration PFSH Acute 2 PFSH: Medical History (Updated 04/05/24 @ 17:08 by Dano Wasserman MD) Emphysema lung Insomnia Family History (Updated 04/04/24 @ 21:34 by Haider Cuello MD) Sister Aneurysm Father Heart disease, Onset Age: 82 Social History (Updated 04/04/24 @ 21:35 by Haider Cuello MD) Smoking and tobacco/nicotine status: current every day tobacco/nicotine user cigarettes [ Other cigarette details: Weak tobacco ] Alcohol intake: never Substance/Drug Use: current Substance/Drug use frequency: few times a week Substance/Drug use type: Marijuana Lives independently: Yes Household members: none Vitals/I&O/Wt Last Vital Signs Temp 97.4 F L 04/05/24 12:00 Pulse 71 04/05/24 12:00 Resp 16 04/05/24 12:00 BP 110/83 04/05/24 12:00 Pulse Ox 94 04/05/24 12:00 O2 Del Method Nasal Cannula 04/05/24 12:00 O2 Flow Rate 2 04/05/24 12:00 04/04/24 04/05/24 04/05/24 22:59 06:59 14:59 Intake Total 120 / 120 Output Total 2800 / 2800 700 / 700 Balance -2800 / -2800 -580 / -580 Weight last 48 hrs Weight 115 lb Weight 115 lb Weight 115 lb Physical Exam 2 Narrative: GENERAL: The patient is alert and oriented times three. Not in any acute distress. Generalized wasting and somebody looking HEENT: No significant pallor, icterus or lymphadenopathy.Oral cavity: There are no mucous membrane lesions. NECK: Trachea appears to be central. No masses noted. No JVD or thyromegaly appreciated. RESPIRATORY: Chest is symmetrical. No intercostals muscle retraction or any accessory muscle activation. There is no chest wall tenderness. Breath sounds are heard bilaterally. No rales or rhonchi heard. No evidence of any consolidation. BREASTS: Deferred. HEART: The heart sounds are normal. No S3 or S4. No significant murmurs. No pericardial rub ABDOMEN: Vague tenderness in the periumbilical region. No organomegaly appreciated. Bowel sounds are normally heard. : Deferred. RECTAL: Deferred. LYMPHATIC: No lymphadenopathy noted in the neck. EXTREMITIES: No edema or cyanosis. No clubbing. MUSCULOSKELETAL: No acute joint deformities or swelling SKIN: There are no significant rashes or ecchymosis NEUROPSYCHIATRIC: The patient is alert and oriented x3. Appears to be in a good mood. No tremors or rigidity noted. Data 04/05/24 02:06 04/05/24 02:06 Other Labs: Laboratory Last Values WBC 12.24 10^3/uL (3.29-11.43) H 04/05/24 02:06 RBC 3.78 10^6/uL (3.85-5.65) L 04/05/24 02:06 Hgb 10.40 g/dL (11.27-16.99) L 04/05/24 02:06 Hct 32.8 % (37-53) L 04/05/24 02:06 MCV 86.8 fl (82-101) 04/05/24 02:06 MCH 27.5 pg (27-33) 04/05/24 02:06 MCHC 31.7 g/dL (30-55) 04/05/24 02:06 RDW 17.3 % (12.1-15.1) H 04/05/24 02:06 Plt Count 368 10^3/cmm (157-399) 04/05/24 02:06 MPV 8.0 fL (7.4-10.4) 04/05/24 02:06 Neut % (Auto) 66.4 % 04/05/24 02:06 Lymph % (Auto) 13.6 % 04/05/24 02:06 [place] % (Auto) 7.1 % 04/05/24 02:06 Eos % (Auto) 12.1 % 04/05/24 02:06 Baso % (Auto) 0.5 % 04/05/24 02:06 Neut # (Auto) 8.12 10^3/uL (1.8-7.7) H 04/05/24 02:06 Lymph # (Auto) 1.7 10^3/uL (0.8-4.8) 04/05/24 02:06 [place] # (Auto) 0.9 10^3/uL (0.2-0.9) 04/05/24 02:06 Eos # (Auto) 1.5 10^3/uL (0.0-0.8) H 04/05/24 02:06 Baso # (Auto) 0.1 10^3/uL (0.0-0.1) 04/05/24 02:06 Nucleated RBC % (auto) 0 % 04/05/24 02:06 Nucleated RBCs # 0.0 /100WBC 04/05/24 02:06 D-Dimer 8.25 ug/mLFEU (0-0.59) H 04/05/24 09:54 Sodium 141 mmol/L (136-145) 04/05/24 02:06 Potassium 3.5 mmol/L (3.5-5.1) 04/05/24 02:06 Chloride 100 mmol/L (98-107) 04/05/24 02:06 Carbon Dioxide 31 mmol/L (22-29) H 04/05/24 02:06 Anion Gap 13.5 (5-19) 04/05/24 02:06 BUN 30 mg/dL (8-23) H 04/05/24 02:06 Creatinine 1.2 mg/dL (0.7-1.2) 04/05/24 02:06 GFR Calculation Not Reportable 04/05/24 02:06 Glucose 150 mg/dL (65-115) H 04/05/24 02:06 Estimat Average Glucose 105 04/05/24 02:06 Hemoglobin A1c 5.3 % (4.0-6.0) 04/05/24 02:06 Calculated Osmolality 301 mOsm/kg (285-295) H 04/05/24 02:06 Lactic Acid 1.1 mmol/L (0.5-2.2) 04/04/24 19:55 Calcium 8.7 mg/dL (8.5-10.5) 04/05/24 02:06 Magnesium 2.1 mg/dL (1.7-2.3) 04/05/24 02:06 Total Bilirubin 0.2 mg/dL (0.15-1.2) 04/04/24 19:55 AST 24 U/L (0-40) 04/04/24 19:55 ALT 14 U/L (0-41) 04/04/24 19:55 Alkaline Phosphatase 66 U/L (40-130) 04/04/24 19:55 Troponin T 5th Gen ng/L 322 ng/L (0-15) H* 04/05/24 08:32 Troponin T Baseline 220 ng/L (0-15) H* 04/04/24 19:55 Troponin T 120 Minute 248.9 ng/L (0-15) H 04/04/24 22:07 Delta Troponin T 28.9 ABS# (0-10) H* 04/04/24 22:07 Troponin T Hi Sens 6Hr 272.4 ng/L (0-15) H 04/05/24 02:06 Troponin T Hi Sens 6Hr Delta 52.4 ng/L (0-12) H* 04/05/24 02:06 C-Reactive Protein 106.4 mg/L (0.0-4.9) H 04/04/24 19:55 NT-Pro-B Natriuret Pep 1470 pg/mL (0-125) H 04/04/24 19:55 Total Protein 6.5 g/dL (6.6-8.7) L 04/04/24 19:55 Albumin 3.3 g/dL (3.5-5.2) L 04/04/24 19:55 Globulin 3.2 g/dL (1.3-4.6) 04/04/24 19:55 Triglycerides 83 mg/dL (0-150) 04/05/24 02:06 Cholesterol 136 mg/dL (0-200) 04/05/24 02:06 LDL Cholesterol, Calc 81 mg/dL (50-129) 04/05/24 02:06 HDL Cholesterol 38 mg/dL (60-100) L 04/05/24 02:06 LDL/HDL Ratio 2.13 RATIO (0.00-3.22) 04/05/24 02:06 Cholesterol/HDL Ratio 3.58 mg/dL (1.0-5.00) 04/05/24 02:06 Procalcitonin 1.43 ng/mL (0-0.5) H 04/05/24 02:06 TSH 7.35 uIU/mL (0.27-4.20) H 04/05/24 02:06 Free T4 1.19 ng/dL (0.82-1.77) 04/05/24 02:06 Free T3 2.0 PG/ML (2.0-4.4) 04/05/24 02:06 Micro: Microbiology 04/05/24 08:32 Blood Culture - Preliminary Blood SPECIMEN COLLECTED 04/05/24 08:37 Blood Culture - Preliminary Blood SPECIMEN COLLECTED Other data: The EKG showed normal sinus rhythm with a normal ST Ts. A&P Assessment and plan (1) Elevated troponin: The patient's elevated troponin T with a significant delta at 2 and 6 hours, may suggest an acute coronary syndrome. Apparently the patient does not have any significant symptoms./The EKG is unremarkable. Echocardiogram is reported as normal. But this needs to be reviewed. He was found to have coronary calcium in the CTA. I may go ahead and start him on Plavix 300 mg p.o. now followed by 75 mg daily (2) Exertional dyspnea: Etiology is not clear. No evidence of any LV dysfunction. Underlying coronary ischemia could be a contributing factor. I may review the echocardiogram. If the patient does not have any significant wall motion normalities, it may be appropriate to do a Myocardial perfusion imaging, to further evaluate the coronary status and decide on further management. (3) AGNES (acute kidney injury): This could be multifactorial. (4) Loss of appetite: Patient's GI symptoms may need to be further evaluated. Plan Other problems are Mild leukocytosis Mild anemia Weight loss For further evaluation of the patient's cardiac status, a Myocardial perfusion imaging would be appropriate. Will make a decision on this after reviewing the echocardiogram. In the meanwhile, patient may be continued on the Lovenox, aspirin and Plavix. Also may try a low-dose of beta-giovanni, if the blood pressure tolerates. Based on the clinical progress on the results of the above, further recommendations will be made. Thank you for the opportunity to evaluate this patient and make these recommendations Consult Attestations 2 Medical Necessity Statement: Patient requires continued hospital stay for close monitoring and further management Coding Level of Care Code 11304 Diagnoses Elevated troponin R79.89 Exertional dyspnea R06.09 AGNES (acute kidney injury) N17.9 Loss of appetite R63.0
--- NOTE | 2024-04-05 17:04 | P.PN_ITS ---
Subjective 2 Subjective: - Patient was seen this morning -He is alert oriented x 3, following all commands, -His biggest complaint is is that he has neuropathy of both feet, with numbness and tingling -He has never been on gabapentin or Neur ontin he is never been told that he has diabetic neuropathy -Bilateral DP PT pulses palpable, good c ap refill, no overlying skin changes or bluish hue -He tells me that he is originally from [place], he tells me that a few months ago, he visited a hospital [place] and the doctor there told him that he had cancer he is not sure what type of cancer but he thinks it was lung cancer, as he has a history of smoking continues to smoke -He does report recent weight loss, fati cisco, malaise, shortness of breath -He denies any chest pain -No calf pain, no calf swelling, no hemo ptysis -We discussed this NSTEMI, etiology is u ncertain but concerning for underlying cardiac etiology -But we will have to do a further workup , he voices understanding, all questions answered -His biggest concern is getting some med ication for his bilateral lower extremity pain, he tells me that he has had a kyphoplasty, his back has not been hurting him the pain does not shoot down from his spine down to his legs but more originates in his legs and his feet specifically Vitals/I&O/Wt Last Vital Signs Temp 97.4 F L 04/05/24 12:00 Pulse 71 04/05/24 12:00 Resp 16 04/05/24 12:00 BP 110/83 04/05/24 12:00 Pulse Ox 94 04/05/24 12:00 O2 Del Method Nasal Cannula 04/05/24 12:00 O2 Flow Rate 2 04/05/24 12:00 04/05/24 04/05/24 04/05/24 06:59 14:59 22:59 Intake Total 370 / 370 Output Total 2800 / 2800 700 / 700 Balance -2800 / -2800 -330 / -330 Weight last 48 hrs Weight 52.163 kg Weight 52.163 kg Weight 52.163 kg Physical Exam 2 Const: COMMON NORMALS: no acute distress and patient oriented x3 Resp: COMMON NORMALS: normal respiratory effort, No retractions and No use of accessory muscles AUSCULTATION: wheezes Cardio: COMMON NORMALS: regular rate, regular rhythm, S1 normal heart sound present and S2 normal heart sound present RATE: regular rate RHYTHM: r egular rhythm HEART SOUNDS: S1 normal heart sound present and S2 normal heart sound present GI: COMMON NORMALS: Normal to inspection, nondistended, normoactive bowel sounds present and non-tender Extremity: COMMON NORMALS: no pedal edema NARRATIVE EXTREMITY EXAM: Clubbing bilateral hands Neuro: COMMON NORMALS: patient oriented x3 Psych: COMMON NORMALS: mental status grossly normal Skin: NARRATIVE SKIN EXAM: Has bilateral temporal muscle wasting, muscle wasting of bilateral thighs, bilateral arms, with thinning of fat pad under bilateral clavicles, ribs Data 04/05/24 02:06 04/05/24 02:06 Micro: Microbiology 04/05/24 08:32 Blood Culture - Preliminary Blood SPECIMEN COLLECTED 04/05/24 08:37 Blood Culture - Preliminary Blood SPECIMEN COLLECTED A&P Assessment and plan (1) Congestive heart failure: (2) Non-ST elevated myocardial infarction: (3) Exertional dyspnea: (4) AGNES (acute kidney injury): (5) Acute hypoxic respiratory failure: (6) Pneumonia: (7) Weight loss: (8) Physical deconditioning: (9) Protein calorie malnutrition: (10) Emphysema lung: Plan Acute hypoxic respiratory failure -Multifactorial -From NSTEMI -Systolic and diastolic CHF -Pneumonia -CT angiogram of the chest CT/CT angio chest PE protcl [id number] IMPRESSION: 1. No evidence of pulmonary embolus. 2. Advanced chronic emphysematous changes. 3. Slight hazy opacities in the lung bases with bibasilar atelectasis. Cardiac echo CONCLUSIONS Normal left ventricular size, systolic function and wall thickness, with no regional wall motion abnormalities. Left ventricular ejection fraction is estimated at 55 %. Grade I/IV diastolic dysfunction (abnormal relaxation filling pattern), normal to mildly elevated filling pressures. Moderate aortic valve calcification. No aortic valve stenosis. Thickening of Aortic valve.mild aortic valve regurgitation. Thickened mitral valve. No mitral valve stenosis. Mild mitral valve regurgitation. There is no pericardial effusion. Right atrial pressure is around 5 mm of mercury. Plan ? Has received Lasix therapy this morning, currently comfortable hold off on further doses of Lasix -Continue therapeutic Lovenox -Continue aspirin, statin -Add Rocephin, azithromycin -Follow blood cultures -Monitor respiratory status closely Pneumonia -Elevated CRP, Pro-Vaughn, leukocytosis -Radiographic evidence as above -Antibiotics as above NSTEMI -No complaints of chest pain -No prior cardiovascular history -Cardiac echo as above -Troponin up to 322 -Cardiology consulted -Aspirin, statin, therapeutic Lovenox Emphysema of the lungs, likely history of COPD -No active wheezing -Continue DuoNeb as needed -Will consider steroid therapy based on clinical progress Weight loss, reported cancer history? CT/CT abdomen pelvis wo con [id number] IMPRESSION: 1. Extensive sigmoid diverticulosis. No evidence of acute diverticulitis. 2. Cholecystectomy. 3. Low-attenuation lesions in the LEFT hepatic lobe likely small hepatic cysts. 4. No hydronephrosis in either kidney. 5. No abdominal or pelvic lymphadenopathy. 6. Prior kyphoplasty changes L3. 7. No other suspicious findings. Severe protein calorie malnutrition, physical deconditioning -Placed secondary to emphysema -Once stable PT OT, dietary eval Smoking addiction: Discussed with cessation for 4 minutes. He is not ready to quit. He states he will not be able to quit at home. He lives by himself. He states he does not smoke much and he smokes weak tobacco . Discussed with him risks of smoking, benefits of cessation. He understands, is not ready at this time. He is agreeable that he will likely need nicotine supplementation while in the hospital, agreeable to nicotine patches and lozenges. Emphysema: At the moment without evidence of COPD exacerbation. Does not have formally diagnosed COPD. May be contributing to his exertional dyspnea and intolerance. Will add breathing treatments as needed. Would benefit from outpatient PFT. Smoking cessation. Insomnia: States that at home he smokes marijuana occasionally and takes trazodone together with which help him sleep. Trazodone helps him inconsistently, marijuana starts working before the trazodone does. Discussed with him we will add trazodone as needed 1 in the hospital. Plan for today, CT angiogram of the chest ordered for concerns for PE, given patient's shortness of breath, reports of malignancy, smoking history, CT abdomen pelvis ordered, results of CT angiogram reviewed with radiology, no PE, CT abdomen reviewed with radiology no evidence of malignancy in CT chest or abdomen, troponins and case reviewed with cardiology, concerns for NSTEMI concern for cardiac etiology, as other causes have been ruled out, recommended cardiac GI evaluation, cardiology consulted, CT chest shows evidence of possible bilateral pneumonia elevated CRP, elevated Pro-Vaughn, started on Rocephin, azithromycin, D-dimer ordered Attestations 2 Medical Necessity Statement*: Patient requires hospitalization, inpatient, greater than 2 midnights for acute hypoxic respiratory failure secondary pneumonia, NSTEMI, CHF Diagnoses Congestive heart failure I50.9 Non-ST elevated myocardial infarction I21.4 Exertional dyspnea R06.09 AGNES (acute kidney injury) N17.9 Acute hypoxic respiratory failure J96.01 Pneumonia J18.9 Weight loss R63.4 Physical deconditioning R53.81 Protein calorie malnutrition E46 Emphysema lung J43.9
--- NOTE | 2024-04-05 18:09 | PC.NURSE ---
updated daughter pt is okay to give health info to her dgtr jorge.
[2024-04-05 18:25] LABS: Hepatitis A Antibody IgM Non-Reactive (Nonreactive); Hepatitis B Core IgM Non-Reactive (Nonreactive); Hepatitis B Surface Antigen Non-Reactive (Nonreactive); Hepatitis C Virus Antibody Non-Reactive (Nonreactive)
[2024-04-05 18:26] LABS: HIV 1 & 2 Antibody Non-Reactive (Non-Reactiv); HIV 1 & 2 Antigen Non-Reactive (Non-Reactiv)
[2024-04-05] MEDS: atorvastatin 40 mg Tablet PO (20:21)
[2024-04-05] MEDS: nicotine 21 mg Patch 1 PATCH TRANSDERMA (20:21)
[2024-04-05] MEDS: aspirin 325 mg Tablet PO (20:21)
[2024-04-05] MEDS: oxyCODONE-APAP 5-325 mg Tablet 1 TAB PO (21:32)
[2024-04-06] VITALS (13 sets, daily range): BP systolic 89–125; BP diastolic 61–74; PULSE 57–94; RESP 13–19; TEMP 36.2–36.9; O2SAT 92–98; BMI 29.2
[2024-04-06 04:15] LABS: Basophils # 0.1 10^3/uL (0.0-0.1); Basophils % 0.6 %; Eosinophils # 1.5 10^3/uL (0.0-0.8); Eosinophils % 14.2 %; Hematocrit 33.9 % (37-53); Lymphocytes # 1.8 10^3/uL (0.8-4.8); Lymphocytes % 16.7 %; Mean Corpuscular HGB Conc 30.7 g/dL (30-55); Mean Corpuscular Volume 88.1 fl (82-101); Monocytes # 0.8 10^3/uL (0.2-0.9); Monocytes % 7.6 %; Neutrophils # 6.38 10^3/uL (1.8-7.7); Neutrophils % 60.6 %; Nucleated Red Blood Cells % 0 %; Platelet Count 347 10^3/cmm (157-399); Red Blood Count 3.85 10^6/uL (3.85-5.65); Red Cell Distribution Width 17.1 % (12.1-15.1); White Blood Count 10.51 10^3/uL (3.29-11.43)
[2024-04-06 04:36] LABS: C Reactive Protein 53.7 mg/L (0.0-4.9)
[2024-04-06 04:38] LABS: Blood Urea Nitrogen 28 mg/dL (8-23); Calcium 8.7 mg/dL (8.5-10.5); Carbon Dioxide 28 mmol/L (22-29); Chloride 103 mmol/L (98-107); Creatinine Clr Calc Pharmacy 45.4634; Glucose 98 mg/dL (65-115); Osmolality Calculated 293 mOsm/kg (285-295); Sodium 139 mmol/L (136-145)
[2024-04-06 04:48] LABS: NT Pro B Type Natriuretic Pept 795 pg/mL (0-125); Procalcitonin 0.81 ng/mL (0-0.5)
--- NOTE | 2024-04-06 07:00 | XR_ITS ---
WS: [id number] XR chest 1V portable [id number] REASON FOR EXAM: sob FINDINGS: The chest is unchanged compared to the previous day. Interstitial lung opacities and lung lucencies c ompatible with central lobar emphysema, most severe in the lower lung garcia. No acute pulmonary parenchymal or pleural abnormality is identified. XR/XR chest 1V portable [id number] IMPRESSION: Chronic lung changes with no acute abnormality.
[2024-04-06] MEDS: regadenoson 0.4 Mg/5 ml Syringe IVP (07:40)
[2024-04-06] MEDS: oxyCODONE-APAP 5-325 mg Tablet 1 TAB PO ×2 (08:27→17:59)
--- NOTE | 2024-04-06 09:45 | ECG_ITS ---
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 Interpretive Statements PROCEDURE: At the baseline, the EKG revealed sinus bradycardia with normal ST Ts. The baseline heart was 57 bpm with a blood pressue of 106/68 mm of Hg Lexiscan was infused over a period of 20 seconds. A total of 0.4 milligrams of Lexiscan was infused. The stress phase was continued for a total of 5 minutes. Heart rate at the end of the stress phase was 97 bpm with a blood pressure 110/58 mm of Hg. The EKG at the peak infusion revealed no significant changes. Sestamibi was injected 20 seconds after the Lexiscan infusion. Heart rate at the end of the recovery phase was 94 bpm with a blood pressure of 121/68 mm of Hg. CONCLUSION: 1. No significant EKG changes with the LexiScan infusion 2. No LexiScan induced chest pain or cardiac arrhythmia 3. Normal blood pressure and heart rate response 4. Sestamibi/sestamibi perfusion scan pending; see separate report. Lung unchanged pre/post procedure; Intraprocedure shortess of breath; Symptoms resoled by discharge Electronically Signed On 04-08-2024 19:52:34 CDT by Mary Grace Gaspar M.D. [email or web address]
[2024-04-06] MEDS: pantoprazole 40 mg SDV IVP ×2 (09:57→20:20)
[2024-04-06] MEDS: hyDROXYzine 25 mg Capsule 50 MG PO (09:57)
[2024-04-06] MEDS: gabapentin 300 mg Capsule PO ×2 (09:57→20:20)
[2024-04-06] MEDS: azithromycin 500 MG in sodium chloride 0.9% 250 ML 250 MG IV (10:42)
[2024-04-06] MEDS: cefTRIAXone 1,000 mg SDV 1000 MG IVP (10:43)
[2024-04-06] MEDS: enoxaparin 60 mg/0.6 mL Syringe 50 MG SUBCUT ×2 (10:43→23:19)
[2024-04-06] MEDS: fixodent 39 gm Tube 1 APPLIC DENTAL (11:21)
--- NOTE | 2024-04-06 14:02 | P.PN_ITS ---
Subjective 2 Subjective: Patient was seen this morning, he is alert oriented x 3, following all commands denies any chest pain, does report intermittent shortness of breath, no fevers, chills, no cough, no nausea, no vomiting, Vitals/I&O/Wt Last Vital Signs Temp 97.3 F L 04/06/24 12:00 Pulse 61 04/06/24 12:00 Resp 19 H 04/06/24 12:00 BP 116/73 04/06/24 12:27 Pulse Ox 97 04/06/24 12:00 O2 Del Method Nasal Cannula 04/06/24 12:00 O2 Flow Rate 2 04/05/24 17:14 04/05/24 04/06/24 04/06/24 22:59 06:59 14:59 Intake Total 236 / 606 250 / 250 Output Total 1025 / 1725 Balance -789 / -1119 250 / 250 Weight last 48 hrs Weight 79.6 kg Weight 79.6 kg Weight 52.163 kg Weight 52.163 kg Weight 52.163 kg Physical Exam 2 Const: COMMON NORMALS: no acute distress and patient oriented x3 Resp: COMMON NORMALS: normal respiratory effort, No retractions, No use of accessory muscles and clear to auscultation bilaterally AUSCULTATION: clear to auscultation bilaterally Cardio: COMMON NORMALS: regular rate, regular rhythm, S1 normal heart sound present and S2 normal heart sound present RATE: regular rate RHYTHM: r egular rhythm HEART SOUNDS: S1 normal heart sound present and S2 normal heart sound present GI: COMMON NORMALS: Normal to inspection, nondistended, normoactive bowel sounds present Extremity: COMMON NORMALS: no pedal edema NARRATIVE EXTREMITY EXAM: DP PT pulses palpable, but diminished, no significant mottling lower extremities Neuro: COMMON NORMALS: patient oriented x3 Psych: COMMON NORMALS: mental status grossly normal Data 04/06/24 03:55 04/06/24 03:55 Micro: Microbiology 04/05/24 08:32 Blood Culture - Preliminary Blood NEGATIVE TO DATE 04/05/24 08:37 Blood Culture - Preliminary Blood NEGATIVE TO DATE A&P Assessment and plan (1) Congestive heart failure: (2) Non-ST elevated myocardial infarction: (3) Exertional dyspnea: (4) AGNES (acute kidney injury): (5) Acute hypoxic respiratory failure: (6) Pneumonia: (7) Weight loss: (8) Physical deconditioning: (9) Protein calorie malnutrition: (10) Emphysema lung: Plan Acute hypoxic respiratory failure -Multifactorial -From NSTEMI -Systolic and diastolic CHF -Pneumonia -CT angiogram of the chest CT/CT angio chest PE protcl [id number] IMPRESSION: 1. No evidence of pulmonary embolus. 2. Advanced chronic emphysematous changes. 3. Slight hazy opacities in the lung bases with bibasilar atelectasis. Cardiac echo CONCLUSIONS Normal left ventricular size, systolic function and wall thickness, with no regional wall motion abnormalities. Left ventricular ejection fraction is estimated at 55 %. Grade I/IV diastolic dysfunction (abnormal relaxation filling pattern), normal to mildly elevated filling pressures. Moderate aortic valve calcification. No aortic valve stenosis. Thickening of Aortic valve.mild aortic valve regurgitation. Thickened mitral valve. No mitral valve stenosis. Mild mitral valve regurgitation. There is no pericardial effusion. Right atrial pressure is around 5 mm of mercury. Plan ? currently comfortable hold off on further doses of Lasix -Continue therapeutic Lovenox -Continue aspirin, statin -Add Rocephin, azithromycin -Follow blood cultures -Monitor respiratory status closely Pneumonia -Elevated CRP, Pro-Vaughn, leukocytosis -Radiographic evidence as above -Antibiotics as above NSTEMI -No complaints of chest pain -No prior cardiovascular history -Cardiac echo as above -Troponin up to 322 -Cardiology consulted -Aspirin, statin, therapeutic Lovenox ? Cardiology consulted, will get a cardiac stress test today Emphysema of the lungs, likely history of COPD -No active wheezing -Continue DuoNeb as needed -Will consider steroid therapy based on clinical progress Weight loss, reported cancer history? CT/CT abdomen pelvis wo con [id number] IMPRESSION: 1. Extensive sigmoid diverticulosis. No evidence of acute diverticulitis. 2. Cholecystectomy. 3. Low-attenuation lesions in the LEFT hepatic lobe likely small hepatic cysts. 4. No hydronephrosis in either kidney. 5. No abdominal or pelvic lymphadenopathy. 6. Prior kyphoplasty changes L3. 7. No other suspicious findings. Severe protein calorie malnutrition, physical deconditioning -Placed secondary to emphysema -Once stable PT OT, dietary eval Smoking addiction: Discussed with cessation for 4 minutes. He is not ready to quit. He states he will not be able to quit at home. He lives by himself. He states he does not smoke much and he smokes weak tobacco . Discussed with him risks of smoking, benefits of cessation. He understands, is not ready at this time. He is agreeable that he will likely need nicotine supplementation while in the hospital, agreeable to nicotine patches and lozenges. Emphysema: At the moment without evidence of COPD exacerbation. Does not have formally diagnosed COPD. May be contributing to his exertional dyspnea and intolerance. Will add breathing treatments as needed. Would benefit from outpatient PFT. Smoking cessation. Insomnia: States that at home he smokes marijuana occasionally and takes trazodone together with which help him sleep. Trazodone helps him inconsistently, marijuana starts working before the trazodone does. Discussed with him we will add trazodone as needed 1 in the hospital. Plan for today, continue IV antibiotics, will consider Lasix therapy therapeutic Lovenox, cardiology consulted, stress test today Attestations 2 Medical Necessity Statement*: Patient requires hospitalization for NSTEMI, respiratory failure, pneumonia Diagnoses Congestive heart failure I50.9 Non-ST elevated myocardial infarction I21.4 Exertional dyspnea R06.09 AGNES (acute kidney injury) N17.9 Acute hypoxic respiratory failure J96.01 Pneumonia J18.9 Weight loss R63.4 Physical deconditioning R53.81 Protein calorie malnutrition E46 Emphysema lung J43.9
--- NOTE | 2024-04-06 16:30 | P.PN_ITS ---
Subjective 2 Subjective: Patient had a Myocardial perfusion imaging today. He was found to have a small area of reversible defect in the mid inferolateral region, suggestive of ischemia in the distribution of the circumflex artery. Denies any chest pain. Medications: Medication Review Details: Current Medications Acetaminophen (Acetaminophen 325 Mg Tablet) 650 mg PO Q6H PRN PRN Reason: Mild Pain Or Temp >/= 101 Last Admin: 04/05/24 08:04 Dose: 650 mg Albuterol/Ipratropium (Ipratropium-Albuterol 3 Ml Neb) 3 ml INHALATION Q6H PRN PRN Reason: SHORTNESS OF BREATH Aminophylline (Aminophylline 25 Mg/Ml Sdv 10 Ml) 25 mg IVP Q2M PRN PRN Reason: see dose instructions Stop: 04/07/24 06:17 Aspirin (Aspirin 325 Mg Tablet) 325 mg PO BEDTIME RONALD Last Admin: 04/05/24 20:21 Dose: 325 mg Atorvastatin Calcium (Atorvastatin 40 Mg Tablet) 40 mg PO BEDTIME RONALD Last Admin: 04/05/24 20:21 Dose: 40 mg Calcium Carbonate (Calcium Carbonate 500 Mg Chew Tablet) 500 mg PO Q4H PRN PRN Reason: INDIGESTION Ceftriaxone Sodium (Ceftriaxone 1,000 Mg Sdv) 1,000 mg IVP Q24H RONALD; Protocol Last Admin: 04/06/24 10:43 Dose: 1,000 mg Denture Adhesive (Fixodent 39 Gm Tube) 1 applic DENTAL PRN PRN PRN Reason: denture adhesive Last Admin: 04/06/24 11:21 Dose: 1 applic Enoxaparin Sodium (Enoxaparin 60 Mg/0.6 Ml Syringe) 50 mg 1 mg/kg (50 mg) SUBCUT Q12H RONALD Last Admin: 04/06/24 10:43 Dose: 50 mg Gabapentin (Gabapentin 300 Mg Capsule) 300 mg PO BID RONALD Last Admin: 04/06/24 09:57 Dose: 300 mg Hydroxyzine Pamoate (Hydroxyzine 25 Mg Capsule) 50 mg PO TID PRN PRN Reason: Anxiety Last Admin: 04/06/24 09:57 Dose: 50 mg Azithromycin 500 mg/ Sodium (Chloride) 250 mls @ 250 mls/hr IV Q24H RONALD; Protocol Last Infusion: 04/06/24 12:02 Dose: Infused Metoclopramide HCl (Metoclopramide 10 Mg Tablet) 5 mg PO TID PRN PRN Reason: Nausea/Bloating Nicotine (Nicotine 21 Mg Patch) 1 patch TRANSDERMA BEDTIME [facility] Last Admin: 04/05/24 20:21 Dose: 1 patch Nicotine Polacrilex (Nicotine 4 Mg Lozenge) 4 mg MUCOUS MEM Q4H PRN PRN Reason: NICOTINE CRAVINGS Last Admin: 04/05/24 12:20 Dose: 4 mg Nitroglycerin (Nitroglycerin 0.4 Mg Sublingual Tablet) 0.4 mg SUBLINGUAL Q5M PRN PRN Reason: CHEST PAIN Stop: 04/07/24 06:17 Ondansetron HCl (Ondansetron 2 Mg/Ml Sdv 2 Ml) 4 mg IVP Q8H PRN PRN Reason: vomiting, or N/V if npo Ondansetron HCl (Ondansetron 2 Mg/Ml Sdv 2 Ml) 4 mg IVP Q2M PRN PRN Reason: NAUSEA Oxycodone/Acetaminophen (Oxycodone-Apap 5-325 Mg Tablet) 1 tab PO Q6H PRN PRN Reason: MODERATE PAIN Last Admin: 04/06/24 08:27 Dose: 1 tab Pantoprazole Sodium (Pantoprazole 40 Mg Sdv) 40 mg IVP Q12H [facility] Last Admin: 04/06/24 09:57 Dose: 40 mg Simethicone (Simethicone 80 Mg Chew) 80 mg PO QID PRN PRN Reason: FLATULENCE Last Admin: 04/05/24 12:34 Dose: 80 mg Sucralfate (Sucralfate 1 Gm Tablet) 1 gm PO QID [facility] Last Admin: 04/06/24 14:18 Dose: Not Given Trazodone HCl (Trazodone 50 Mg Tablet) 25 mg PO BEDTIME PRN PRN Reason: INSOMNIA Vitals/I&O/Wt Last Vital Signs Temp 98.0 F 04/06/24 16:00 Pulse 60 04/06/24 16:00 Resp 18 04/06/24 16:00 BP 103/65 04/06/24 16:00 Pulse Ox 98 04/06/24 16:00 O2 Del Method Nasal Cannula 04/06/24 16:00 O2 Flow Rate 2 04/06/24 14:35 04/06/24 04/06/24 04/06/24 06:59 14:59 22:59 Intake Total 250 / 250 Output Total 500 / 500 Balance 250 / 250 -500 / -250 Weight last 48 hrs Weight 175 lb 7.807 oz Weight 175 lb 7.807 oz Weight 115 lb Weight 115 lb Weight 115 lb Physical Exam 2 Narrative: GENERAL: The patient is alert and oriented times three. Not in any acute distress. Generalized wasting and somebody looking HEENT: No significant pallor, icterus or lymphadenopathy.Oral cavity: There are no mucous membrane lesions. NECK: Trachea appears to be central. No masses noted. No JVD or thyromegaly appreciated. RESPIRATORY: Chest is symmetrical. No intercostals muscle retraction or any accessory muscle activation. There is no chest wall tenderness. Breath sounds are heard bilaterally. No rales or rhonchi heard. No evidence of any consolidation. BREASTS: Deferred. HEART: The heart sounds are normal. No S3 or S4. No significant murmurs. No pericardial rub ABDOMEN: Vague tenderness in the periumbilical region. No organomegaly appreciated. Bowel sounds are normally heard. : Deferred. RECTAL: Deferred. LYMPHATIC: No lymphadenopathy noted in the neck. EXTREMITIES: No edema or cyanosis. No clubbing. MUSCULOSKELETAL: No acute joint deformities or swelling SKIN: There are no significant rashes or ecchymosis NEUROPSYCHIATRIC: The patient is alert and oriented x3. Appears to be in a good mood. No tremors or rigidity noted. Data 04/06/24 03:55 04/06/24 03:55 Other Labs: Laboratory Last Values WBC 10.51 10^3/uL (3.29-11.43) 04/06/24 03:55 RBC 3.85 10^6/uL (3.85-5.65) 04/06/24 03:55 Hgb 10.40 g/dL (11.27-16.99) L 04/06/24 03:55 Hct 33.9 % (37-53) L 04/06/24 03:55 MCV 88.1 fl (82-101) 04/06/24 03:55 MCH 27.0 pg (27-33) 04/06/24 03:55 MCHC 30.7 g/dL (30-55) 04/06/24 03:55 RDW 17.1 % (12.1-15.1) H 04/06/24 03:55 Plt Count 347 10^3/cmm (157-399) 04/06/24 03:55 MPV 8.0 fL (7.4-10.4) 04/06/24 03:55 Neut % (Auto) 60.6 % 04/06/24 03:55 Lymph % (Auto) 16.7 % 04/06/24 03:55 Hemphill % (Auto) 7.6 % 04/06/24 03:55 Eos % (Auto) 14.2 % 04/06/24 03:55 Baso % (Auto) 0.6 % 04/06/24 03:55 Neut # (Auto) 6.38 10^3/uL (1.8-7.7) 04/06/24 03:55 Lymph # (Auto) 1.8 10^3/uL (0.8-4.8) 04/06/24 03:55 Hemphill # (Auto) 0.8 10^3/uL (0.2-0.9) 04/06/24 03:55 Eos # (Auto) 1.5 10^3/uL (0.0-0.8) H 04/06/24 03:55 Baso # (Auto) 0.1 10^3/uL (0.0-0.1) 04/06/24 03:55 Nucleated RBC % (auto) 0 % 04/06/24 03:55 Nucleated RBCs # 0.0 /100WBC 04/06/24 03:55 D-Dimer 8.25 ug/mLFEU (0-0.59) H 04/05/24 09:54 Sodium 139 mmol/L (136-145) 04/06/24 03:55 Potassium 4.0 mmol/L (3.5-5.1) 04/06/24 03:55 Chloride 103 mmol/L (98-107) 04/06/24 03:55 Carbon Dioxide 28 mmol/L (22-29) 04/06/24 03:55 Anion Gap 12.0 (5-19) 04/06/24 03:55 BUN 28 mg/dL (8-23) H 04/06/24 03:55 Creatinine 1.2 mg/dL (0.7-1.2) 04/06/24 03:55 GFR Calculation Not Reportable 04/06/24 03:55 Glucose 98 mg/dL (65-115) 04/06/24 03:55 Estimat Average Glucose 105 04/05/24 02:06 Hemoglobin A1c 5.3 % (4.0-6.0) 04/05/24 02:06 Calculated Osmolality 293 mOsm/kg (285-295) 04/06/24 03:55 Lactic Acid 1.1 mmol/L (0.5-2.2) 04/04/24 19:55 Calcium 8.7 mg/dL (8.5-10.5) 04/06/24 03:55 Magnesium 2.1 mg/dL (1.7-2.3) 04/05/24 02:06 Total Bilirubin 0.2 mg/dL (0.15-1.2) 04/04/24 19:55 AST 24 U/L (0-40) 04/04/24 19:55 ALT 14 U/L (0-41) 04/04/24 19:55 Alkaline Phosphatase 66 U/L (40-130) 04/04/24 19:55 Troponin T 5th Gen ng/L 322 ng/L (0-15) H* 04/05/24 08:32 Troponin T Baseline 220 ng/L (0-15) H* 04/04/24 19:55 Troponin T 120 Minute 248.9 ng/L (0-15) H 04/04/24 22:07 Delta Troponin T 28.9 ABS# (0-10) H* 04/04/24 22:07 Troponin T Hi Sens 6Hr 272.4 ng/L (0-15) H 04/05/24 02:06 Troponin T Hi Sens 6Hr Delta 52.4 ng/L (0-12) H* 04/05/24 02:06 C-Reactive Protein 53.7 mg/L (0.0-4.9) H 04/06/24 03:55 NT-Pro-B Natriuret Pep 795 pg/mL (0-125) H 04/06/24 03:55 Total Protein 6.5 g/dL (6.6-8.7) L 04/04/24 19:55 Albumin 3.3 g/dL (3.5-5.2) L 04/04/24 19:55 Globulin 3.2 g/dL (1.3-4.6) 04/04/24 19:55 Triglycerides 83 mg/dL (0-150) 04/05/24 02:06 Cholesterol 136 mg/dL (0-200) 04/05/24 02:06 LDL Cholesterol, Calc 81 mg/dL (50-129) 04/05/24 02:06 HDL Cholesterol 38 mg/dL (60-100) L 04/05/24 02:06 LDL/HDL Ratio 2.13 RATIO (0.00-3.22) 04/05/24 02:06 Cholesterol/HDL Ratio 3.58 mg/dL (1.0-5.00) 04/05/24 02:06 Procalcitonin 0.81 ng/mL (0-0.5) H 04/06/24 03:55 TSH 7.35 uIU/mL (0.27-4.20) H 04/05/24 02:06 Free T4 1.19 ng/dL (0.82-1.77) 04/05/24 02:06 Free T3 2.0 PG/ML (2.0-4.4) 04/05/24 02:06 Hepatitis A IgM Ab Non-reactive (Nonreactive) 04/04/24 19:53 Hep Bs Antigen Non-reactive (Nonreactive) 04/04/24 19:53 Hep B Core IgM Ab Non-reactive (Nonreactive) 04/04/24 19:53 Hepatitis C Antibody Non-reactive (Nonreactive) 04/04/24 19:53 HIV 1&2 Ab & HIV 1 Ag Non-reactive (Non-Reactiv) 04/04/24 19:53 HIV 1&2 Antibody Non-reactive (Non-Reactiv) 04/04/24 19:53 Micro: Microbiology 04/05/24 08:32 Blood Culture - Preliminary Blood NEGATIVE TO DATE 04/05/24 08:37 Blood Culture - Preliminary Blood NEGATIVE TO DATE Other data: The Myocardial perfusion imaging from today Myocardial perfusion imaging revealing a small area reversible defect in the mid inferolateral region suggesting ischemia in the distribution of the left circumflex artery. (The summed rest score was 2 with a stress score of 1 and difference score of 1). 2. Normal LV ejection fraction 56% 3. LV wall motion analysis revealing no gross wall motion abnormalities. 4. Normal LV volume. No similar previous studies are available for comparison A&P Assessment and plan (1) Elevated troponin: Patient was found to have elevated BNP at the time of admission. It seems to be coming down. The area of ischemia is small. Implications of the Perfusion scan results were discussed with the patient. (2) Exertional dyspnea: Coronary ischemia, diastolic heart failure are contributing factors. Apparently the patient had a diuretics which helped his symptoms to some extent. (3) AGNES (acute kidney injury): This could be multifactorial. The BUN/creatinine levels are improving. (4) Loss of appetite: Patient's GI symptoms may need to be further evaluated. Plan Other problems are Mild leukocytosis Mild anemia Weight loss I I discussed with the patient in detail implications of test findings. If the remaining stable with no chest pain, it may be appropriate to treat him medically since the area of ischemia is small. Apparently he reported to the nurses about chest pain during the night, even though he denied chest pain to my questions repeatedly If the patient has chest pain with some features of heart failure, it may be appropriate to go ahead with a cardiac catheterization and then decide on further management. In the meanwhile, he may be continued on the current medications. Attestations 2 Medical Necessity Statement*: Patient requires continued hospital stay for close monitoring and further management Coding Level of Care Code 35626 Diagnoses Elevated troponin R79.89 Exertional dyspnea R06.09 AGNES (acute kidney injury) N17.9 Loss of appetite R63.0
[2024-04-06 17:23] LABS: Bilirubin Urine Negative (Negative); Blood Urine Negative (Negative); Glucose Urine UA Negative (Normal); Ketones Urine Negative (Negative); Leukocyte Esterase Urine Negative (Negative); Nitrate Urine Negative (Negative); Protein Urine 1+ (Negative); Specific Gravity, Urine 1.019 (1.005-1.030); Urine Appearance Clear (CLEAR); Urine Color Yellow (Yellow); Urobilinogen Urine 0.2 mg/dL (Negative); pH Urine 7.5 (5-7)
[2024-04-06 17:28] LABS: Add Urine Microscopic? YES; Bacteria Urine None Seen /hpf; RBC Urine 0-2 /hpf (0-2); Squamous Epithelial Cell Urine 0-5 /hpf (0-5); WBC Urine 0-5 /hpf (0-5)
--- NOTE | 2024-04-06 17:49 | NMCV_ITS ---
NM david perf SPECT r/s* [id number] Papo White Age: 73 Gender: M : 1950 Exam Date: 04/06/2024 17:49 Ordering Phys: Mary Grace Gaspar MD ([email or web address]) Technologist: CARI Valdez Exam Location: [facility] Indications: cp STRESS TEST Please see separate stress test report in [facility] for full findings IMAGE PROTOCOL Rest/Stress 1 Lexiscan Day Radiopharmaceutical Dose (mCi) Administration Site Administered by Rest: Tc-99m 10.8 IV CARI Valdez Sestamibi Stress:Tc-99m 32.3 IV CARI Do Sestamibi Rest: 06-Apr-2024 60 Discovery 630 Stress: 06-Apr-2024 30 Discovery 630 0.4mg Lexiscan. Supine position only as patient was unable to lay prone. SPECT RESULTS Technical Quality: Poor Raw Data Analysis: Subdiaphragmatic activity. Patient was scanned 5 different times, soda was given, unable to get rid of gut uptake. Image Corrections: No attenuation or motion correction applied Summed Stress Score: 1 Summed Rest Score: 2 Summed Difference Score: 1 PERFUSION FINDINGS A small area of slightly decreased tracer uptake in the mid inferolateral region with reversibility, FUNCTIONAL RESULTS (calculated via Gated SPECT) Stress Image LV EF (%): 56 Stress EDV (mL):78 TID: 1.14 Stress ESV (mL):34 FUNCTIONAL FINDINGS: Segmental wall motion analysis revealing no gross wall motion abnormalities IMPRESSIONS 1. Myocardial perfusion imaging revealing a small area reversible defect in the mid inferolateral region suggesting ischemia in the distribution of the left circumflex artery. (The summed rest score was 2 with a stress score of 1 and difference score of 1). 2. Normal LV ejection fraction 56% 3. LV wall motion analysis revealing no gross wall motion abnormalities. 4. Normal LV volume. No similar previous studies are available for comparison Dr Mary Grace Gaspar MD [facility] (Electronically Signed) Final Date: 06 April 2024 13:01 S
[2024-04-06] MEDS: calcium carbonate 500 mg Chew Tablet PO (18:01)
[2024-04-06] MEDS: simethicone 80 mg Chew PO (18:01)
[2024-04-06] MEDS: sodium chloride 0.9% 1,000 ML 50 ML IV (18:07)
[2024-04-06] MEDS: sucralfate 1 gm Tablet PO (20:20)
[2024-04-06] MEDS: atorvastatin 40 mg Tablet PO (20:20)
[2024-04-06] MEDS: nicotine 21 mg Patch 1 PATCH TRANSDERMA (20:22)
[2024-04-07] VITALS (26 sets, daily range): BP systolic 96–136; BP diastolic 57–88; PULSE 55–80; RESP 12–22; TEMP 36.3–37.2; O2SAT 90–97
--- NOTE | 2024-04-07 | XACV_ITS ---
Wt: 79 kg BSA: 1.93 m2 Gender: Male : 1950 Any Known Allergies: Sulfa Exam Priority: Routine Procedure(s): Procedure Description: Diagnostic procedure Procedure Description: PCI procedure Procedure Description: Coronary IVUS Procedure Description: Drug Eluting Coronary Stent Procedure Description: PTCA Procedure Description: Miscellaneous Procedure Description: ACT Procedure Description: Coronary Angiography Diagnostic Cath Status: Urgent Diagnostic Findings * Left Main has no significant disease. * Left Anterior Descending has mild diffuse luminal irregularities. * Mid Circumflex: subtotal 99% occlusion, EMIGDIO: 2 flow. * Proximal Right Coronary Artery to Mid Right Coronary Artery: mild 40% stenosis, EMIGDIO: 3 flow. * Proximal Circumflex: moderate 50% stenosis, EMIGDIO: 3 flow. * 1st Diagonal: obstructive 70% stenosis, EMIGDIO: 3 flow. * Coronary angiography shows right dominance. PCI Status: Urgent PCI Indication: Other Interventional Findings * Procedure detail: We engaged left main artery with XB 3.5 guide catheter. IV heparin was administered to maintain anticoagulation. After several attempts to wire the left circumflex artery we decided to use super cross microcatheter as left circumflex artery has a retroflexed course. With the wiring the mid left circumflex artery had dissection. We predilated the stenosis with 2.0 x 15 mm semicompliant balloon. This was followed by placement of 2.5 x 30 mm resolute Nicole drug-eluting stent with GuideLiner support. At this time final angiogram was performed that showed excellent stent expansion. IVUS was used to confirm no uncovered dissection. Patient left nursery laborer in a stable condition. . * Mid Circumflex: 99% stenosis treated with a AB MINI TREK 2.00X15 RX BALLOON, and MDT R NCIOLE 2.5X30 ANGIE. 0% residual stenosis, EMIGDIO: 3 flow. Conclusions 1. 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 2. Mid Circumflex was treated with a Balloon, and Drug Eluting Stent. Recommendations * Dual antiplatelet therapy with aspirin and plavix for atleast 1 year. * High intensity statin therapy. * Outpatient cardiology follow up in 2 weeks. Interventional RX Recommendation: PCI w/o planned CABG Diagnostic RX Recommendation: PCI w/o planned CABG Anticoagulation: Heparin Clinical Evaluation EBL: 5mL-10mL Procedural Details Procedure Consent Obtained. Pre-Procedure Time Out. Procedure started. Identified patient by full name and date of as verbalized by the patient/guarantor. Does the consent match the physician's order: Yes. Accurate & Complete Informed Consent: Yes. Inpatient/Outpatient History & Physical on Chart: Yes. If H&P is completed, is and addenduem needed: No. Visualize and Verify Site with Patient/Guarantor: N/A. Relevant Radiology Images available: Yes. The risks, benefits, and alternatives of sedation and/or procedure were discussed by physician. The patient agrees to continue. [facility] Clinical Fraility Score: 3: Managing Well. Negative Stripper Indications: ACS > 24 hours/NSTEMI. Chest Pain Symptom Assessment: Typical Angina Symptoms. Cardiovascular Instability: No. Correct patient, site and procedure confirmed by cath team. Current diagnosis: NSTEMI. PERRLA. Strong, equal hand nursery school attendant bilaterally. Lungs clear x 5 lobes. IV Site on Arrival: 20 gauge in the left forearm. IV Fluids: 0.9% NaCl at KVO. 600 mL infused prior to nursery laborer. Pre Procedural Pulses: bilateral dorsalis pedis was 3+. Pre Procedural Pulses: bilateral posterior tibial was 3+. Pre Procedural Pulses: bilateral radial was 3+. Oxygen started at 4liters/min via nasal canula. right groin was prepped with chloroprep then draped in the usual sterile fashion. right radial was prepped with chloroprep then draped in the usual sterile fashion. Physician notified. Baseline sample Acquired. HR: 73 BPM. Patients Gregoria wilkes, is in the computer lab aide waiting room. Dr. Bauer will update at the completion of the procedure. Equipment: 6F - Radial. Cardiac Cath Pack. ACIST Manifold Kit Model BT 2000. Heparinized Saline (2 units/mL), 1000 mL bag. Physician arrived. Physician scrubbed in. Immediate Pre-Procedure Time Out. Correct Patient: Yes; Correct Procedure: Yes; Correct Site: Yes; Correct Patient Position: Yes; Correct Supplies: Yes; Dried Flammable Prep: Yes; Blood Products Available: N/A. Lidocaine 1% infiltrated to the right radial. Arterial access obtained. A 5 somali TIG catheter in over the exchange J wire. Multiple views taken of left coronary artery. Catheter redirected to the RCA. Multiple views taken of right coronary artery. Catheter removed over the exchange J wire. Updated the patients Gregoria wilkes. 6 somali XB 3 guide catheter was inserted over the exchange J wire. Runthrough guidewire was advanced through the guide catheter to lesion in the Mid Circ. Runthrough wire out to reshape. Runthrough wire back in. Runthrough wire out to reshape. Runthrough wire back in. Runthrough wire out. SuperCross in over the Runthrough 300cm guidewire. SuperCross out OTW. AP Pads placed on the patient. Inflation number : 1 A AB MINI TREK 2.00X15 RX BALLOON was prepped and advanced across the Mid CX , then inflated to 8 JULIANNE for 0:14 seconds. Inflation number: 2 The AB MINI TREK 2.00X15 RX BALLOON was reinflated across the Mid CX, to 8 JULIANNE for 0:08 seconds. Inflation number: 3 The AB MINI TREK 2.00X15 RX BALLOON was reinflated across the Mid CX, to 8 JULIANNE for 0:08 seconds. Balloon out. Results checked. MDMiya NICOLE 2.5mm x 30mm unable to cross, removed intact. Guideliner in OTW. Inflation Number : 4 A DEEJAY Rausch NICOLE 2.5X30 ANGIE -Lot Number# [id number] prepped and advanced across the Mid CX. The stent was deployed at 12 JULIANNE for 0:22 seconds. Exp . Stent balloon out over wire. Results checked. Guideliner out OTW. IVUS catheter in OTW. IVUS performed of the CX. IVUS catheter out OTW. Wire out. Results checked. ACT drawn. Results 360 seconds. Therapeutic limits - pre-heparin administration 90-150 seconds and monitoring heparin during a vascular procedure >250 seconds. Guide catheter out. Physician scrubbed out. Post Procedure: Pulses reassessed and unchanged. PERRLA. Strong, equal hand nursery school attendant bilaterally. No VTE prophylaxis required. Medication's Wasted: Lidocaine 1% = 18 mL. Total IV fluids: 85 mL. Medication's Wasted: Nitro = 49.8 mg. Medication's Wasted: Heparin = 3000 Units. Medication's Wasted: Other = Fentanyl 50mcg. A TR Band was successful obtaining hemostatsis at the Right Radial artery insertion site. PCI Indication: CAD (without ischemic symptoms). Post-op diagnosis: PCI of the mid CX. Complications: none. Estimated blood loss: 5mL-10mL. Responsiveness - Normal response to verbal stimuli; alert and oriented, PERRLA. Airway - Unaffected, no intervention required; spontaneous ventilation. Circulation: W/N/L, pulses unchanged. Nausea/Vomiting: No. Procedure completed. Patient transferred by bed to 1st floor. Vital chart was stopped. Access Site Site: Right Radial artery Sheath Size: 6 Fr Hemostasis Method: TR Band Hemostasis Success: Successful Procedure Medications Start: 7:36 AM Stop: 7:36 AM Medication: Fentanyl Amount: 50 mcg Route: I.V. Start: 7:41 AM Stop: 7:41 AM Medication: Versed Amount: 1 mg Route: I.V. Start: 7:43 AM Stop: 7:43 AM Medication: Nitrogylcerin Amount: 200 mcg Route: I.A. Start: 7:44 AM Stop: 7:44 AM Medication: Heparin Amount: 3000 units Route: I.V. Start: 7:50 AM Stop: 7:50 AM Medication: Heparin Amount: 4000 units Route: I.V. Start: 8:10 AM Stop: 8:10 AM Medication: Heparin Amount: 1000 units Route: I.V. Start: 8:28 AM Stop: 8:28 AM Medication: Versed Amount: 1 mg Route: I.V. Start: 8:45 AM Stop: 8:45 AM Medication: Plavix Amount: 600 mg Route: P.O. I, the attending physician, have reviewed and verified all procedure medications. Yes, all medications given per verbal order History/Risk Factors Hypertension: No Dyslipidemia: No Peripheral Arterial Disease (PAD): No Myocardial Infarction (TX): No Obesity: No Renal Disease: No Tobacco Use: Current/Recent(w/in 1 year) Prior Interventions PCI: No CABG: No Valve Surgery: No Report Signatures Finalized by Jose Daniel Bauer MD on 04/07/2024 08:10 PM
[2024-04-07 02:39] LABS: Basophils % 0.4 %; Eosinophils # 1.8 10^3/uL (0.0-0.8); Eosinophils % 16.6 %; Hematocrit 31.8 % (37-53); Lymphocytes % 18.5 %; Mean Corpuscular HGB Conc 30.2 g/dL (30-55); Mean Corpuscular Hemoglobin 26.5 pg (27-33); Mean Corpuscular Volume 87.8 fl (82-101); Mean Platelet Volume 8.3 fL (7.4-10.4); Monocytes # 0.9 10^3/uL (0.2-0.9); Monocytes % 8.4 %; Neutrophils % 55.7 %; Nucleated Red Blood Cells % 0 %; Platelet Count 352 10^3/cmm (157-399); Red Blood Count 3.62 10^6/uL (3.85-5.65); Red Cell Distribution Width 16.7 % (12.1-15.1); White Blood Count 10.76 10^3/uL (3.29-11.43)
[2024-04-07 03:12] LABS: Anion Gap 10.3 (5-19); Blood Urea Nitrogen 23 mg/dL (8-23); Calcium 8.3 mg/dL (8.5-10.5); Carbon Dioxide 28 mmol/L (22-29); Chloride 105 mmol/L (98-107); Creatinine Clr Calc Pharmacy 64.9211; Glucose 107 mg/dL (65-115); Osmolality Calculated 292 mOsm/kg (285-295); Potassium 4.3 mmol/L (3.5-5.1); Sodium 139 mmol/L (136-145)
[2024-04-07 03:17] LABS: Procalcitonin 0.48 ng/mL (0-0.5)
[2024-04-07 03:23] LABS: NT Pro B Type Natriuretic Pept 580 pg/mL (0-125)
[2024-04-07] MEDS: aspirin 325 mg Tablet PO (06:35)
[2024-04-07] MEDS: diphenhydrAMINE 50 mg Capsule PO (06:35)
--- NOTE | 2024-04-07 07:18 | PC.NURSE ---
to cardiac director of cardiac cath lab at this time
--- NOTE | 2024-04-07 09:04 | PC.NURSE ---
return from cardiac laborer [facility] barn at 0900 via bed.report received.pt is drowsy but easily awakened.sr on monitor.right wrist with tr band on and inflated.right hand is warm to touch and with brisk capillary refill.no hematoma noted.palpable radial pulse noted distal to tr band.pt and family instructed in activity restrictions s/p radial artery procedure.and instructed to notify staff for any bleeding,pain,numbness,sob,or for any concerns at all.they verb understanding of instructions
--- NOTE | 2024-04-07 09:26 | W.PM.OPSUD ---
Surgery/Procedure H&P Update DATE OF PROCEDURE: April 07, 2024 DATE H&P PERFORMED: 04/05/24 H&P UPDATE INFORMATION: I have reviewed H&P completed within last 30 days, I have examined patient prior to procedure and No changes to prior documentation PREOP DIAGNOSIS: NSTEMI/Abnormal stress test PRIMARY INDICATION FOR PROCEDURE: NSTEMI/Abnormal stress test PLANNED PROCEDURE: Left heart cath with possible percutaneous coronary intervention PATIENT REASSESSED PRIOR TO SEDATION, WITH NO CHANGE NOTED: Yes PHYSICAL EXAM: alert, oriented x 3, clear to auscultation bilaterally and regular rate & rhythm AIRWAY EVAL/ANESTHESIA PLAN: normal airway, ASA III, Local Anesthesia, Risks, benefits & alternatives of sedation and/or procedure discussed and Patient agrees to continue as planned ADDITIONAL INFORMATION: Moderate sedation
[2024-04-07] MEDS: pantoprazole 40 mg SDV IVP ×2 (09:45→20:19)
[2024-04-07] MEDS: sucralfate 1 gm Tablet PO ×3 (09:45→20:19)
[2024-04-07] MEDS: gabapentin 300 mg Capsule PO ×2 (09:45→17:47)
[2024-04-07] MEDS: azithromycin 500 MG in sodium chloride 0.9% 250 ML 250 MG IV (09:49)
[2024-04-07] MEDS: cefTRIAXone 1,000 mg SDV 1000 MG IVP (09:50)
--- NOTE | 2024-04-07 10:27 | P.PN_ITS ---
Subjective 2 Subjective: Patient had coronary angiogram that demonstrated subtotal 99% stenosis of mid left circumflex artery. Underwent successful revascularization with 1 stent. Vitals/I&O/Wt Last Vital Signs Temp 99.0 F 04/07/24 03:50 Pulse 66 04/07/24 05:43 Resp 18 04/07/24 03:50 BP 124/76 04/07/24 03:50 Pulse Ox 92 04/07/24 03:50 O2 Del Method Room Air 04/07/24 03:50 O2 Flow Rate 2 04/06/24 14:35 04/06/24 04/07/24 04/07/24 22:59 06:59 14:59 Output Total 800 / 800 500 / 500 Balance -800 / -550 -500 / -500 Weight last 48 hrs Weight 145 lb 8.081 oz Weight 145 lb 8.081 oz Weight 175 lb 7.807 oz Weight 175 lb 7.807 oz Physical Exam 2 Narrative: GENERAL: Patient is alert, awake and oriented x3. [] NECK: No jugular vein distension. [] HEENT: No cyanosis. No icterus. No pallor. [] HEART: Regular S1 and S2. No murmur, rub or gallop. [] LUNGS: Clear to auscultate bilaterally. [] CENTRAL NERVOUS SYSTEM: Grossly nonfocal. [] EXTREMITIES: Lower extremities with no edema bilaterally. Data 04/07/24 02:09 04/07/24 02:09 Micro: Microbiology 04/05/24 08:32 Blood Culture - Preliminary Blood NEGATIVE TO DATE 04/05/24 08:37 Blood Culture - Preliminary Blood NEGATIVE TO DATE A&P Assessment and plan (1) Elevated troponin: (2) Exertional dyspnea: (3) AGNES (acute kidney injury): (4) Loss of appetite: Plan Patient has presented with features consistent with non-ST elevation [place] and had an abnormal stress test. Coronary angiogram demonstrated severe subtotal occlusion of mid left circumflex artery. We performed PCI with 1 stent. Continue aspirin and Plavix for at least 1 year High intensity statin therapy Thank you for involving us with care of this patient. We will continue to follow. Please call with questions. Attestations 2 Medical Necessity Statement*: Care expected to cross 2 midnights. Coding Level of Care Code Acute Code for [facility] Diagnoses Elevated troponin R79.89 Exertional dyspnea R06.09 AGNES (acute kidney injury) N17.9 Loss of appetite R63.0
[2024-04-07] MEDS: hyDROXYzine 25 mg Capsule 50 MG PO ×2 (11:20→20:18)
[2024-04-07] MEDS: oxyCODONE-APAP 5-325 mg Tablet 1 TAB PO ×2 (11:20→17:47)
[2024-04-07] MEDS: ondansetron 2 mg/ML SDV 2 mL 4 MG IVP (11:21)
[2024-04-07] MEDS: calcium carbonate 500 mg Chew Tablet PO (11:22)
[2024-04-07] MEDS: sodium chloride 0.9% 1,000 ML 100 ML IV (12:00)
--- NOTE | 2024-04-07 14:58 | PC.NURSE ---
tr band slowly deflated and eventually removed at 1400.site dressed with 2x2 gauze and secured with tegaderm.no hematoma noted.right hand remains warm to touch and with brisk capillary refill.palpable radial pulse noted.pt instructed in activity restrictions s/p tr band removal..and instructed to notify staff for any bleeding,pain,numbness,sob..or for any concerns at all.pt verb understanding of instructions.
--- NOTE | 2024-04-07 17:08 | P.PN_ITS ---
Subjective 2 Subjective: - Patient was seen this morning, for his cardiac catheterization he had a stent placed to the left circumflex, no chest pain, no palpitations no shortness of breath, no abdominal pain Vitals/I&O/Wt Last Vital Signs Temp 98.2 F 04/07/24 15:59 Pulse 72 04/07/24 15:59 Resp 20 H 04/07/24 15:59 BP 97/63 04/07/24 15:59 Pulse Ox 94 04/07/24 15:59 O2 Del Method Room Air 04/07/24 15:59 O2 Flow Rate 2 04/07/24 11:55 04/07/24 04/07/24 04/07/24 06:59 14:59 22:59 Intake Total 730 / 730 Output Total 500 / 500 750 / 1250 Balance 230 / 230 -750 / -520 Weight last 48 hrs Weight 66 kg Weight 66 kg Weight 79.6 kg Weight 79.6 kg Physical Exam 2 Const: COMMON NORMALS: no acute distress and patient oriented x3 Resp: COMMON NORMALS: normal respiratory effort, No retractions, No use of accessory muscles and clear to auscultation bilaterally AUSCULTATION: clear to auscultation bilaterally Cardio: COMMON NORMALS: regular rate, regular rhythm, S1 normal heart sound present and S2 normal heart sound present RATE: regular rate RHYTHM: r egular rhythm HEART SOUNDS: S1 normal heart sound present and S2 normal heart sound present GI: COMMON NORMALS: Normal to inspection, nondistended, normoactive bowel sounds present and non-tender Extremity: COMMON NORMALS: no calf tenderness and no pedal edema Neuro: COMMON NORMALS: patient oriented x3 Psych: COMMON NORMALS: mental status grossly normal Data 04/07/24 02:09 04/07/24 02:09 A&P Assessment and plan (1) Congestive heart failure: (2) Non-ST elevated myocardial infarction: (3) Exertional dyspnea: (4) AGNES (acute kidney injury): (5) Acute hypoxic respiratory failure: (6) Pneumonia: (7) Weight loss: (8) Physical deconditioning: (9) Protein calorie malnutrition: (10) Emphysema lung: Plan Acute hypoxic respiratory failure -Multifactorial -From NSTEMI -Systolic and diastolic CHF -Pneumonia -CT angiogram of the chest CT/CT angio chest PE protcl [id number] IMPRESSION: 1. No evidence of pulmonary embolus. 2. Advanced chronic emphysematous changes. 3. Slight hazy opacities in the lung bases with bibasilar atelectasis. Cardiac echo CONCLUSIONS Normal left ventricular size, systolic function and wall thickness, with no regional wall motion abnormalities. Left ventricular ejection fraction is estimated at 55 %. Grade I/IV diastolic dysfunction (abnormal relaxation filling pattern), normal to mildly elevated filling pressures. Moderate aortic valve calcification. No aortic valve stenosis. Thickening of Aortic valve.mild aortic valve regurgitation. Thickened mitral valve. No mitral valve stenosis. Mild mitral valve regurgitation. There is no pericardial effusion. Right atrial pressure is around 5 mm of mercury. Plan ? currently comfortable hold off on further doses of Lasix -Continue therapeutic Lovenox -Continue aspirin, statin -Rocephin, azithromycin -Follow blood cultures -Monitor respiratory status closely Pneumonia -Elevated CRP, Pro-Vaughn, leukocytosis -Radiographic evidence as above -Antibiotics as above NSTEMI -No complaints of chest pain -No prior cardiovascular history -Cardiac echo as above -Troponin up to 322 -Cardiology consulted -Aspirin, statin, therapeutic Lovenox ? Cardiology consulted, will get a cardiac stress test abnormal -During my discussion with patient yesterday when he ambulated with physical therapy he had chest discomfort, chest tightness, and yesterday throughout the day he had episodes of chest tightness -Status post coronary angiography 04/07/2024 status post 1 stent to left circumflex Emphysema of the lungs, likely history of COPD -No active wheezing -Continue DuoNeb as needed -Will consider steroid therapy based on clinical progress Weight loss, reported cancer history? CT/CT abdomen pelvis wo con [id number] IMPRESSION: 1. Extensive sigmoid diverticulosis. No evidence of acute diverticulitis. 2. Cholecystectomy. 3. Low-attenuation lesions in the LEFT hepatic lobe likely small hepatic cysts. 4. No hydronephrosis in either kidney. 5. No abdominal or pelvic lymphadenopathy. 6. Prior kyphoplasty changes L3. 7. No other suspicious findings. Severe protein calorie malnutrition, physical deconditioning -Placed secondary to emphysema -Once stable PT OT, dietary eval Smoking addiction: Discussed with cessation for 4 minutes. He is not ready to quit. He states he will not be able to quit at home. He lives by himself. He states he does not smoke much and he smokes weak tobacco . Discussed with him risks of smoking, benefits of cessation. He understands, is not ready at this time. He is agreeable that he will likely need nicotine supplementation while in the hospital, agreeable to nicotine patches and lozenges. Emphysema: At the moment without evidence of COPD exacerbation. Does not have formally diagnosed COPD. May be contributing to his exertional dyspnea and intolerance. Will add breathing treatments as needed. Would benefit from outpatient PFT. Smoking cessation. Insomnia: States that at home he smokes marijuana occasionally and takes trazodone together with which help him sleep. Trazodone helps him inconsistently, marijuana starts working before the trazodone does. Discussed with him we will add trazodone as needed 1 in the hospital. Plan for today, status post coronary angiography, monitor thereafter, continue aspirin, statin, Plavix, continue IV antibiotics, monitor respiratory status, spoke to cardiology Attestations 2 Medical Necessity Statement*: Patient requires hospitalization for cardiac cath status post left circumflex stenting, shortness of breath, on antibiotics for pneumonia Diagnoses Congestive heart failure I50.9 Non-ST elevated myocardial infarction I21.4 Exertional dyspnea R06.09 AGNES (acute kidney injury) N17.9 Acute hypoxic respiratory failure J96.01 Pneumonia J18.9 Weight loss R63.4 Physical deconditioning R53.81 Protein calorie malnutrition E46 Emphysema lung J43.9
[2024-04-07] MEDS: atorvastatin 40 mg Tablet PO (20:18)
[2024-04-07] MEDS: nicotine 21 mg Patch 1 PATCH TRANSDERMA (20:19)
[2024-04-07] MEDS: temazepam 15 mg Capsule PO (20:33)
[2024-04-08] VITALS (11 sets, daily range): BP systolic 91–161; BP diastolic 64–108; PULSE 67–89; RESP 14–18; TEMP 36.3–36.9; O2SAT 92–97
[2024-04-08] MEDS: oxyCODONE-APAP 5-325 mg Tablet 1 TAB PO ×2 (03:40→10:27)
[2024-04-08] MEDS: hyDROXYzine 25 mg Capsule 50 MG PO ×2 (03:40→14:05)
[2024-04-08 03:58] LABS: Basophils # 0.1 10^3/uL (0.0-0.1); Basophils % 0.5 %; Eosinophils # 1.8 10^3/uL (0.0-0.8); Lymphocytes # 1.5 10^3/uL (0.8-4.8); Lymphocytes % 12.1 %; Mean Corpuscular HGB Conc 30.6 g/dL (30-55); Mean Corpuscular Hemoglobin 27.4 pg (27-33); Mean Corpuscular Volume 89.4 fl (82-101); Mean Platelet Volume 8.4 fL (7.4-10.4); Monocytes % 8.2 %; Neutrophils % 64.6 %; Nucleated Red Blood Cells % 0 %; Platelet Count 324 10^3/cmm (157-399); Red Blood Count 3.58 10^6/uL (3.85-5.65); White Blood Count 12.55 10^3/uL (3.29-11.43)
[2024-04-08 04:21] LABS: Anion Gap 13.1 (5-19); Blood Urea Nitrogen 18 mg/dL (8-23); Calcium 8.5 mg/dL (8.5-10.5); Carbon Dioxide 24 mmol/L (22-29); Chloride 104 mmol/L (98-107); Creatinine Clr Calc Pharmacy 50.6394; Glucose 103 mg/dL (65-115); Osmolality Calculated 286 mOsm/kg (285-295); Potassium 4.1 mmol/L (3.5-5.1); Sodium 137 mmol/L (136-145)
[2024-04-08 04:25] LABS: NT Pro B Type Natriuretic Pept 1464 pg/mL (0-125); Procalcitonin 0.34 ng/mL (0-0.5)
[2024-04-08 04:35] LABS: C Reactive Protein 21.6 mg/L (0.0-4.9)
[2024-04-08] MEDS: azithromycin 500 MG in sodium chloride 0.9% 250 ML 250 MG IV (09:10)
[2024-04-08] MEDS: pantoprazole 40 mg SDV IVP ×2 (09:10→20:52)
[2024-04-08] MEDS: cefTRIAXone 1,000 mg SDV 1000 MG IVP (09:11)
[2024-04-08] MEDS: clopidogrel 75 mg Tablet PO (09:12)
[2024-04-08] MEDS: gabapentin 300 mg Capsule PO ×2 (09:12→17:35)
[2024-04-08] MEDS: aspirin 81 mg EC Tablet PO (09:12)
[2024-04-08] MEDS: sucralfate 1 gm Tablet PO ×3 (09:12→20:52)
--- NOTE | 2024-04-08 10:34 | P.PN_ITS ---
Subjective 2 Subjective: Patient is overall doing well. No chest pain Vitals/I&O/Wt Last Vital Signs Temp 98.4 F 04/08/24 07:40 Pulse 87 04/08/24 08:40 Resp 14 04/08/24 10:27 BP 91/64 04/08/24 07:40 Pulse Ox 93 04/08/24 08:40 O2 Del Method Room Air 04/08/24 08:40 O2 Flow Rate 2 04/07/24 11:55 04/07/24 04/08/24 04/08/24 22:59 06:59 14:59 Intake Total 2340 / 3070 120 / 120 Output Total 750 / 1250 700 / 1950 Balance 1590 / 1820 -700 / 1120 120 / 120 Weight last 48 hrs Weight 121 lb 11.123 oz Weight 145 lb 8.081 oz Weight 145 lb 8.081 oz Physical Exam 2 Narrative: GENERAL: Patient is alert, awake and oriented x3. [] NECK: No jugular vein distension. [] HEENT: No cyanosis. No icterus. No pallor. [] HEART: Regular S1 and S2. No murmur, rub or gallop. [] LUNGS: Clear to auscultate bilaterally. [] CENTRAL NERVOUS SYSTEM: Grossly nonfocal. [] EXTREMITIES: Lower extremities with no edema bilaterally. Data 04/08/24 03:34 04/08/24 03:34 A&P Assessment and plan (1) Elevated troponin: (2) Exertional dyspnea: (3) AGNES (acute kidney injury): (4) Loss of appetite: Plan Patient is doing well. Had PCI of mid left circumflex artery yesterday. Continue aspirin and Plavix. Thank you for involving us with care of this patient. Please call with questions. Attestations 2 Medical Necessity Statement*: Care expected to cross 2 midnights. Coding Level of Care Code Acute Code for Chg Fwd Diagnoses Elevated troponin R79.89 Exertional dyspnea R06.09 AGNES (acute kidney injury) N17.9 Loss of appetite R63.0
--- NOTE | 2024-04-08 11:10 | P.PN_ITS ---
Subjective 2 Subjective: Patient was seen this morning, he sitting up beside the bed, getting a sponge baths, does report persistent poor appetite, generalized fatigue and weakness but overall no chest pain, no shortness of breath, no lightheadedness, dizziness Vitals/I&O/Wt Last Vital Signs Temp 98.4 F 04/08/24 07:40 Pulse 87 04/08/24 08:40 Resp 14 04/08/24 10:27 BP 91/64 04/08/24 07:40 Pulse Ox 93 04/08/24 08:40 O2 Del Method Room Air 04/08/24 08:40 O2 Flow Rate 2 04/07/24 11:55 04/07/24 04/08/24 04/08/24 22:59 06:59 14:59 Intake Total 2340 / 3070 120 / 120 Output Total 750 / 1250 700 / 1950 Balance 1590 / 1820 -700 / 1120 120 / 120 Weight last 48 hrs Weight 55.2 kg Weight 66 kg Weight 66 kg Physical Exam 2 Const: COMMON NORMALS: no acute distress and patient oriented x3 Resp: COMMON NORMALS: normal respiratory effort, No retractions, No use of accessory muscles and clear to auscultation bilaterally AUSCULTATION: clear to auscultation bilaterally Cardio: COMMON NORMALS: regular rate, regular rhythm, S1 normal heart sound present and S2 normal heart sound present RATE: regular rate RHYTHM: r egular rhythm HEART SOUNDS: S1 normal heart sound present and S2 normal heart sound present GI: COMMON NORMALS: Normal to inspection, nondistended, normoactive bowel sounds present and non-tender Extremity: COMMON NORMALS: no pedal edema Neuro: COMMON NORMALS: patient oriented x3 Psych: COMMON NORMALS: mental status grossly normal Skin: NARRATIVE SKIN EXAM: 1+ pitting edema lower extremities, DP P T pulses bilateral extremity palpable, no significant mottling Data 04/08/24 03:34 04/08/24 03:34 A&P Assessment and plan (1) Congestive heart failure: (2) Non-ST elevated myocardial infarction: (3) Exertional dyspnea: (4) AGNES (acute kidney injury): (5) Acute hypoxic respiratory failure: (6) Pneumonia: (7) Weight loss: (8) Physical deconditioning: (9) Protein calorie malnutrition: (10) Emphysema lung: (11) Peripheral vascular disease: (12) Eosinophilia: Plan Acute hypoxic respiratory failure -Multifactorial -From NSTEMI -Systolic and diastolic CHF -Pneumonia -CT angiogram of the chest CT/CT angio chest PE protcl [id number] IMPRESSION: 1. No evidence of pulmonary embolus. 2. Advanced chronic emphysematous changes. 3. Slight hazy opacities in the lung bases with bibasilar atelectasis. Cardiac echo CONCLUSIONS Normal left ventricular size, systolic function and wall thickness, with no regional wall motion abnormalities. Left ventricular ejection fraction is estimated at 55 %. Grade I/IV diastolic dysfunction (abnormal relaxation filling pattern), normal to mildly elevated filling pressures. Moderate aortic valve calcification. No aortic valve stenosis. Thickening of Aortic valve.mild aortic valve regurgitation. Thickened mitral valve. No mitral valve stenosis. Mild mitral valve regurgitation. There is no pericardial effusion. Right atrial pressure is around 5 mm of mercury. Plan ? currently comfortable hold off on further doses of Lasix, has received fluids overnight blood pressures a bit soft, will consider further doses based upon blood pressure -Continue aspirin, statin, Plavix -Rocephin, azithromycin today, de-escalate to Augmentin tomorrow -Follow blood cultures -Monitor respiratory status closely Pneumonia -Elevated CRP, Pro-Vaughn, leukocytosis -Radiographic evidence as above -Antibiotics as above NSTEMI -No complaints of chest pain -No prior cardiovascular history -Cardiac echo as above -Troponin up to 322 -Cardiology consulted -Aspirin, statin, therapeutic Lovenox ? Cardiology consulted, will get a cardiac stress test abnormal -During my discussion with patient yesterday when he ambulated with physical therapy he had chest discomfort, chest tightness, and yesterday throughout the day he had episodes of chest tightness -Status post coronary angiography 04/07/2024 status post 1 stent to left circumflex ? Aspirin, Plavix, statin Emphysema of the lungs, likely history of COPD -No active wheezing -Continue DuoNeb as needed -Hold off on steroids for now no wheezing Weight loss, reported cancer history? CT/CT abdomen pelvis wo con [id number] IMPRESSION: 1. Extensive sigmoid diverticulosis. No evidence of acute diverticulitis. 2. Cholecystectomy. 3. Low-attenuation lesions in the LEFT hepatic lobe likely small hepatic cysts. 4. No hydronephrosis in either kidney. 5. No abdominal or pelvic lymphadenopathy. 6. Prior kyphoplasty changes L3. 7. No other suspicious findings. -CT chest as above -Certainly eosinophilia is concerning, will need to follow-up with hematology oncology as outpatient Severe protein calorie malnutrition, physical deconditioning -Placed secondary to emphysema -Once stable PT OT, dietary eval Bilateral lower extremity pain -Concerning for peripheral vascular disease, with superficial arterial ulcers -Continue aspirin, Plavix, statin as above -Can consider cilostazol Arterial ultrasound FINDINGS: Right common femoral artery: Normal peak systolic velocities. No hemodynamically significant stenosis. Normal waveform. Right superficial femoral artery: Proximal right superficial femoral artery peak systolic velocity is mildly elevated at 151 cm/s. This corresponds to between 30 and 49% stenosis. Normal waveform. Right popliteal artery: No occlusion or significant stenosis. Normal waveform. Right calf/foot arteries: No occlusion or significant stenosis in the visualized arteries. Normal waveforms. Dorsalis pedis artery is patent. Left common femoral artery: No occlusion or significant stenosis. Normal waveform. Left superficial femoral artery: No occlusion or significant stenosis. Normal waveform. Left popliteal artery: No occlusion or significant stenosis. Normal waveform. Left calf/foot arteries: No occlusion or significant stenosis in the visualized arteries. Normal waveforms. Dorsalis pedis artery is patent. -Needs to quit [place] US/[place] [id number] IMPRESSION: Proximal right superficial femoral artery peak systolic velocity is mildly elevated at 151 cm/s. This corresponds to between 30 and 49% stenosis. Eosinophilia? -Blood work shows persistent eosinophilia -Does complain of rash bilateral extremity, at times painful bilateral extremity -Could be from emphysema -Potentially will require outpatient follow-up with hematology oncology for further workup, especially with his weight loss, needs workup for neoplastic disorder Smoking addiction: Discussed with cessation for 4 minutes. He is not ready to quit. He states he will not be able to quit at home. He lives by himself. He states he does not smoke much and he smokes weak tobacco . Discussed with him risks of smoking, benefits of cessation. He understands, is not ready at this time. He is agreeable that he will likely need nicotine supplementation while in the hospital, agreeable to nicotine patches and lozenges. Emphysema: At the moment without evidence of COPD exacerbation. Does not have formally diagnosed COPD. May be contributing to his exertional dyspnea and intolerance. Will add breathing treatments as needed. Would benefit from outpatient PFT. Smoking cessation. Insomnia: States that at home he smokes marijuana occasionally and takes trazodone together with which help him sleep. Trazodone helps him inconsistently, marijuana starts working before the trazodone does. Discussed with him we will add trazodone as needed 1 in the hospital. Plan for today, PT OT, will consider diuresis based on clinical progress, continue IV antibiotics transition to p.o. antibiotics Attestations 2 Medical Necessity Statement*: Patient requires hospitalization for NSTEMI, pneumonia, respiratory failure Coding Level of Care Code 83114 Diagnoses Congestive heart failure I50.9 Non-ST elevated myocardial infarction I21.4 Exertional dyspnea R06.09 AGNES (acute kidney injury) N17.9 Acute hypoxic respiratory failure J96.01 Pneumonia J18.9 Weight loss R63.4 Physical deconditioning R53.81 Protein calorie malnutrition E46 Emphysema lung J43.9 Peripheral vascular disease I73.9 Eosinophilia D72.10
[2024-04-08] MEDS: amoxicillin-clav 875-125 mg Tablet 1 TAB PO ×2 (12:28→23:40)
[2024-04-08] MEDS: enoxaparin 40 mg/0.4 mL Syringe SUBCUT (12:28)
[2024-04-08] MEDS: simethicone 80 mg Chew PO (12:30)
[2024-04-08] MEDS: calcium carbonate 500 mg Chew Tablet PO (17:43)
[2024-04-08] MEDS: atorvastatin 40 mg Tablet PO (20:52)
[2024-04-08] MEDS: temazepam 15 mg Capsule PO (20:52)
[2024-04-08] MEDS: nicotine 4 mg lozenge MUCOUS MEM (20:54)
[2024-04-09] VITALS (10 sets, daily range): BP systolic 88–124; BP diastolic 59–82; PULSE 65–93; RESP 12–18; TEMP 36.4–36.8; O2SAT 90–97
[2024-04-09 04:35] LABS: Basophils # 0.1 10^3/uL (0.0-0.1); Basophils % 0.5 %; Eosinophils # 1.4 10^3/uL (0.0-0.8); Eosinophils % 12.1 %; Hematocrit 34.4 % (37-53); Lymphocytes # 1.5 10^3/uL (0.8-4.8); Lymphocytes % 12.8 %; Mean Corpuscular HGB Conc 30.8 g/dL (30-55); Mean Corpuscular Hemoglobin 27.1 pg (27-33); Mean Platelet Volume 8.5 fL (7.4-10.4); Monocytes # 0.9 10^3/uL (0.2-0.9); Monocytes % 7.6 %; Neutrophils % 66.2 %; Nucleated Red Blood Cells % 0 %; Platelet Count 348 10^3/cmm (157-399); Red Blood Count 3.91 10^6/uL (3.85-5.65); White Blood Count 11.33 10^3/uL (3.29-11.43)
[2024-04-09 04:52] LABS: Anion Gap 13.9 (5-19); Blood Urea Nitrogen 15 mg/dL (8-23); Calcium 8.7 mg/dL (8.5-10.5); Carbon Dioxide 22 mmol/L (22-29); Chloride 106 mmol/L (98-107); Creatinine Clr Calc Pharmacy 61.8926; Glucose 105 mg/dL (65-115); Osmolality Calculated 287 mOsm/kg (285-295); Potassium 3.9 mmol/L (3.5-5.1); Sodium 138 mmol/L (136-145)
[2024-04-09] MEDS: calcium carbonate 500 mg Chew Tablet PO (07:45)
[2024-04-09] MEDS: aspirin 81 mg EC Tablet PO (09:02)
[2024-04-09] MEDS: sucralfate 1 gm Tablet PO ×2 (09:02→20:06)
[2024-04-09] MEDS: clopidogrel 75 mg Tablet PO (09:02)
[2024-04-09] MEDS: pantoprazole 40 mg SDV IVP ×2 (09:02→20:06)
--- NOTE | 2024-04-09 09:04 | P.PN_ITS ---
Subjective 2 Subjective: The patient had a cardiac catheterization on Tuesday. He was found to have a high-grade ostial lesion in the mid circumflex artery. He underwent PCI of this lesion. Has not had any postintervention chest pain. No hematoma bleeding from the radial arterial puncture site. The vital signs remained stable. Medications: Medication Review Details: Current Medications Acetaminophen (Acetaminophen 325 Mg Tablet) 650 mg PO Q6H PRN PRN Reason: Mild Pain Or Temp >/= 101 Last Admin: 04/05/24 08:04 Dose: 650 mg Al Hydrox/Mg Hydrox/Simethicone (Espi-Unb-Mioezuijx-Tobias 30 Ml Udc) 30 ml PO Q15M PRN PRN Reason: INDIGESTION Albuterol/Ipratropium (Ipratropium-Albuterol 3 Ml Neb) 3 ml INHALATION Q6H PRN PRN Reason: SHORTNESS OF BREATH Amoxicillin/Clavulanate Potassium (Amoxicillin-Clav 875-125 Mg Tablet) 1 tab PO Q12H [facility]; Protocol Last Admin: 04/08/24 23:40 Dose: 1 tab Aspirin (Aspirin 81 Mg Ec Tablet) 81 mg PO DAILY [facility] Last Admin: 04/08/24 09:12 Dose: 81 mg Atorvastatin Calcium (Atorvastatin 40 Mg Tablet) 40 mg PO BEDTIME [facility] Last Admin: 04/08/24 20:52 Dose: 40 mg Atropine Sulfate (Atropine 1 Mg/Ml Sdv 1 Ml) 0.5 mg IVP PRN PRN PRN Reason: Symptomatic bradycardia Calcium Carbonate (Calcium Carbonate 500 Mg Chew Tablet) 500 mg PO Q4H PRN PRN Reason: INDIGESTION Last Admin: 04/09/24 07:45 Dose: 500 mg Clopidogrel Bisulfate (Clopidogrel 75 Mg Tablet) 75 mg PO DAILY [facility] Last Admin: 04/08/24 09:12 Dose: 75 mg Denture Adhesive (Fixodent 39 Gm Tube) 1 applic DENTAL PRN PRN PRN Reason: denture adhesive Last Admin: 04/06/24 11:21 Dose: 1 applic Enoxaparin Sodium (Enoxaparin 40 Mg/0.4 Ml Syringe) 40 mg SUBCUT Q24H [facility] Last Admin: 04/08/24 12:28 Dose: 40 mg Gabapentin (Gabapentin 300 Mg Capsule) 300 mg PO BID [facility] Last Admin: 04/08/24 17:35 Dose: 300 mg Hydroxyzine Pamoate (Hydroxyzine 25 Mg Capsule) 50 mg PO TID PRN PRN Reason: Anxiety Last Admin: 04/08/24 14:05 Dose: 50 mg Magnesium Hydroxide (Magnesium Hydroxide 30 Ml Udc) 30 ml PO DAILY PRN PRN Reason: CONSTIPATION Metoclopramide HCl (Metoclopramide 10 Mg Tablet) 5 mg PO TID PRN PRN Reason: Nausea/Bloating Naloxone HCl (Naloxone 0.4 Mg/Ml Sdv) 0.1 mg IVP Q2M PRN PRN Reason: RESPIRATORY RATE < 8/MIN Nicotine (Nicotine 21 Mg Patch) 1 patch TRANSDERMA BEDTIME [facility] Last Admin: 04/08/24 20:52 Dose: Not Given Nicotine Polacrilex (Nicotine 4 Mg Lozenge) 4 mg MUCOUS MEM Q4H PRN PRN Reason: NICOTINE CRAVINGS Last Admin: 04/08/24 20:54 Dose: 4 mg Nitroglycerin (Nitroglycerin 0.4 Mg Sublingual Tablet) 0.4 mg SUBLINGUAL Q5M PRN PRN Reason: CHEST PAIN Ondansetron HCl (Ondansetron 2 Mg/Ml Sdv 2 Ml) 4 mg IVP Q8H PRN PRN Reason: vomiting, or N/V if npo Last Admin: 04/07/24 11:21 Dose: 4 mg Ondansetron HCl (Ondansetron 2 Mg/Ml Sdv 2 Ml) 4 mg IVP Q2M PRN PRN Reason: NAUSEA Oxycodone/Acetaminophen (Oxycodone-Apap 5-325 Mg Tablet) 1 tab PO Q6H PRN PRN Reason: MODERATE PAIN Last Admin: 04/08/24 10:27 Dose: 1 tab Pantoprazole Sodium (Pantoprazole 40 Mg Sdv) 40 mg IVP Q12H [facility] Last Admin: 04/08/24 20:52 Dose: 40 mg Polyethylene Glycol (Polyethylene Glycol 3350 Pkt 17 Gm) 17 gm PO DAILY [facility] Last Admin: 04/08/24 09:12 Dose: Not Given Simethicone (Simethicone 80 Mg Chew) 80 mg PO QID PRN PRN Reason: FLATULENCE Last Admin: 04/08/24 12:30 Dose: 80 mg Sucralfate (Sucralfate 1 Gm Tablet) 1 gm PO QID [facility] Last Admin: 04/08/24 20:52 Dose: 1 gm Temazepam (Temazepam 15 Mg Capsule) 15 mg PO BEDTIME PRN PRN Reason: INSOMNIA Last Admin: 04/08/24 20:52 Dose: 15 mg Trazodone HCl (Trazodone 50 Mg Tablet) 25 mg PO BEDTIME PRN PRN Reason: INSOMNIA Vitals/I&O/Wt Last Vital Signs Temp 97.5 F L 04/09/24 07:39 Pulse 87 04/09/24 07:39 Resp 16 04/09/24 07:39 BP 98/72 04/09/24 07:39 Pulse Ox 90 04/09/24 07:39 O2 Del Method Room Air 04/09/24 07:39 O2 Flow Rate 2 04/07/24 11:55 04/08/24 04/09/24 04/09/24 22:59 06:59 14:59 Intake Total 240 / 480 Output Total 700 / 1500 750 / 2250 Balance -460 / -1020 -750 / -1770 Weight last 48 hrs Weight 121 lb Weight 121 lb Weight 95 lb 10.89 oz Weight 121 lb 11.123 oz Physical Exam 2 Narrative: GENERAL: The patient is alert and oriented times three. Not in any acute distress. Generalized wasting and somebody looking HEENT: No significant pallor, icterus or lymphadenopathy.Oral cavity: There are no mucous membrane lesions. NECK: Trachea appears to be central. No masses noted. No JVD or thyromegaly appreciated. RESPIRATORY: Chest is symmetrical. No intercostals muscle retraction or any accessory muscle activation. There is no chest wall tenderness. Breath sounds are heard bilaterally. No rales or rhonchi heard. No evidence of any consolidation. BREASTS: Deferred. HEART: The heart sounds are normal. No S3 or S4. No significant murmurs. No pericardial rub ABDOMEN: Vague tenderness in the periumbilical region. No organomegaly appreciated. Bowel sounds are normally heard. : Deferred. RECTAL: Deferred. LYMPHATIC: No lymphadenopathy noted in the neck. EXTREMITIES: The right radial arterial puncture site has no hematoma or bleeding. MUSCULOSKELETAL: No acute joint deformities or swelling SKIN: There are no significant rashes or ecchymosis NEUROPSYCHIATRIC: The patient is alert and oriented x3. Appears to be in a good mood. No tremors or rigidity noted. Data 04/09/24 04:18 04/09/24 04:18 Other Labs: Laboratory Last Values WBC 11.33 10^3/uL (3.29-11.43) 04/09/24 04:18 RBC 3.91 10^6/uL (3.85-5.65) 04/09/24 04:18 Hgb 10.60 g/dL (11.27-16.99) L 04/09/24 04:18 Hct 34.4 % (37-53) L 04/09/24 04:18 MCV 88.0 fl (82-101) 04/09/24 04:18 MCH 27.1 pg (27-33) 04/09/24 04:18 MCHC 30.8 g/dL (30-55) 04/09/24 04:18 RDW 17.0 % (12.1-15.1) H 04/09/24 04:18 Plt Count 348 10^3/cmm (157-399) 04/09/24 04:18 MPV 8.5 fL (7.4-10.4) 04/09/24 04:18 Neut % (Auto) 66.2 % 04/09/24 04:18 Lymph % (Auto) 12.8 % 04/09/24 04:18 [place] % (Auto) 7.6 % 04/09/24 04:18 Eos % (Auto) 12.1 % 04/09/24 04:18 Baso % (Auto) 0.5 % 04/09/24 04:18 Neut # (Auto) 7.50 10^3/uL (1.8-7.7) 04/09/24 04:18 Lymph # (Auto) 1.5 10^3/uL (0.8-4.8) 04/09/24 04:18 [place] # (Auto) 0.9 10^3/uL (0.2-0.9) 04/09/24 04:18 Eos # (Auto) 1.4 10^3/uL (0.0-0.8) H 04/09/24 04:18 Baso # (Auto) 0.1 10^3/uL (0.0-0.1) 04/09/24 04:18 Nucleated RBC % (auto) 0 % 04/09/24 04:18 Nucleated RBCs # 0.0 /100WBC 04/09/24 04:18 D-Dimer 8.25 ug/mLFEU (0-0.59) H 04/05/24 09:54 Sodium 138 mmol/L (136-145) 04/09/24 04:18 Potassium 3.9 mmol/L (3.5-5.1) 04/09/24 04:18 Chloride 106 mmol/L (98-107) 04/09/24 04:18 Carbon Dioxide 22 mmol/L (22-29) 04/09/24 04:18 Anion Gap 13.9 (5-19) 04/09/24 04:18 BUN 15 mg/dL (8-23) 04/09/24 04:18 Creatinine 0.9 mg/dL (0.7-1.2) 04/09/24 04:18 GFR Calculation Not Reportable 04/09/24 04:18 Glucose 105 mg/dL (65-115) 04/09/24 04:18 Estimat Average Glucose 105 04/05/24 02:06 Hemoglobin A1c 5.3 % (4.0-6.0) 04/05/24 02:06 Calculated Osmolality 287 mOsm/kg (285-295) 04/09/24 04:18 Lactic Acid 1.1 mmol/L (0.5-2.2) 04/04/24 19:55 Calcium 8.7 mg/dL (8.5-10.5) 04/09/24 04:18 Magnesium 2.1 mg/dL (1.7-2.3) 04/05/24 02:06 Total Bilirubin 0.2 mg/dL (0.15-1.2) 04/04/24 19:55 AST 24 U/L (0-40) 04/04/24 19:55 ALT 14 U/L (0-41) 04/04/24 19:55 Alkaline Phosphatase 66 U/L (40-130) 04/04/24 19:55 Troponin T 5th Gen ng/L 322 ng/L (0-15) H* 04/05/24 08:32 Troponin T Baseline 220 ng/L (0-15) H* 04/04/24 19:55 Troponin T 120 Minute 248.9 ng/L (0-15) H 04/04/24 22:07 Delta Troponin T 28.9 ABS# (0-10) H* 04/04/24 22:07 Troponin T Hi Sens 6Hr 272.4 ng/L (0-15) H 04/05/24 02:06 Troponin T Hi Sens 6Hr Delta 52.4 ng/L (0-12) H* 04/05/24 02:06 C-Reactive Protein 21.6 mg/L (0.0-4.9) H 04/08/24 03:34 NT-Pro-B Natriuret Pep 1464 pg/mL (0-125) H 04/08/24 03:34 Total Protein 6.5 g/dL (6.6-8.7) L 04/04/24 19:55 Albumin 3.3 g/dL (3.5-5.2) L 04/04/24 19:55 Globulin 3.2 g/dL (1.3-4.6) 04/04/24 19:55 Triglycerides 83 mg/dL (0-150) 04/05/24 02:06 Cholesterol 136 mg/dL (0-200) 04/05/24 02:06 LDL Cholesterol, Calc 81 mg/dL (50-129) 04/05/24 02:06 HDL Cholesterol 38 mg/dL (60-100) L 04/05/24 02:06 LDL/HDL Ratio 2.13 RATIO (0.00-3.22) 04/05/24 02:06 Cholesterol/HDL Ratio 3.58 mg/dL (1.0-5.00) 04/05/24 02:06 Procalcitonin 0.34 ng/mL (0-0.5) 04/08/24 03:34 TSH 7.35 uIU/mL (0.27-4.20) H 04/05/24 02:06 Free T4 1.19 ng/dL (0.82-1.77) 04/05/24 02:06 Free T3 2.0 PG/ML (2.0-4.4) 04/05/24 02:06 Urine Color Yellow (Yellow) 04/06/24 17:05 Urine Appearance Clear (CLEAR) 04/06/24 17:05 Urine pH 7.5 (5-7) 04/06/24 17:05 Ur Specific [place] 1.019 (1.005-1.030) 04/06/24 17:05 Urine Protein 1+ (Negative) A 04/06/24 17:05 Urine Glucose (UA) Negative (Normal) 04/06/24 17:05 Urine Ketones Negative (Negative) 04/06/24 17:05 Urine Blood Negative (Negative) 04/06/24 17:05 Urine Nitrate Negative (Negative) 04/06/24 17:05 Urine Bilirubin Negative (Negative) 04/06/24 17:05 Urine Urobilinogen 0.2 mg/dL (Negative) 04/06/24 17:05 Ur Leukocyte Esterase Negative (Negative) 04/06/24 17:05 Urine RBC 0-2 /hpf (0-2) 04/06/24 17:05 Urine WBC 0-5 /hpf (0-5) 04/06/24 17:05 Ur Squamous Epith Cells 0-5 /hpf (0-5) 04/06/24 17:05 Amorphous Sediment Not Reportable 04/06/24 17:05 Urine Bacteria None seen /hpf (NONE) 04/06/24 17:05 Hyaline Casts 0.40 /lpf 04/06/24 17:05 Hepatitis A IgM Ab Non-reactive (Nonreactive) 04/04/24 19:53 Hep Bs Antigen Non-reactive (Nonreactive) 04/04/24 19:53 Hep B Core IgM Ab Non-reactive (Nonreactive) 04/04/24 19:53 Hepatitis C Antibody Non-reactive (Nonreactive) 04/04/24 19:53 HIV 1&2 Ab & HIV 1 Ag Non-reactive (Non-Reactiv) 04/04/24 19:53 HIV 1&2 Antibody Non-reactive (Non-Reactiv) 04/04/24 19:53 A&P Assessment and plan (1) Acute non-ST elevation myocardial infarction (NSTEMI): Patient status post cardiac irradiation. High-grade ostial lesion in the mid circumflex artery. Status post PCI of the circumflex lesion. Currently seems to be stable. (2) Acute diastolic heart failure: Currently compensated. May continue on the current medications. (3) AGNES (acute kidney injury): The kidney function is back to normal at this point. May continue on the current medications. (4) Loss of appetite: Patient's GI symptoms may need to be further evaluated. Further management as per the primary service (5) Hypothyroid: I may add Synthroid 0.025 mg p.o. daily. Repeat TSH in a month Qualifiers: Hypothyroidism type: acquired Qualified Code(s): E03.9 - Hypothyroidism, unspecified Plan Other problems are Mild leukocytosis, resolved Mild anemia Weight loss If the patient continues to remain stable, may be discharged home from a cardiac standpoint. Patient may be continued on the aspirin, Plavix, low-dose of beta- giovanni, statin and the other current medications. Please make an appointment to be seen in the office by the nurse practitioner in 1-2 week I may see him in the office in 1 month Attestations 2 Medical Necessity Statement*: Deferred to the primary Coding Level of Care Code 26403 Diagnoses Acute non-ST elevation myocardial infarction (NSTEMI) I21.4 Acute diastolic heart failure I50.31 AGNES (acute kidney injury) N17.9 Loss of appetite R63.0 Acquired hypothyroidism E03.9 Hypothyroidism type: acquired
[2024-04-09] MEDS: gabapentin 300 mg Capsule PO ×2 (09:07→18:25)
[2024-04-09 10:19] LABS: Iron 44 ug/dL (59-158); Percent Saturation 23.2 % (20-50); Total Iron Binding Capacity 189 mcg/dl; Unsaturated Iron Binding 145 ug/dL (112-347)
[2024-04-09 10:32] LABS: Vitamin B12 1456 pg/mL (232-1245)
[2024-04-09] MEDS: amoxicillin-clav 875-125 mg Tablet 1 TAB PO (11:29)
[2024-04-09] MEDS: enoxaparin 40 mg/0.4 mL Syringe SUBCUT (11:29)
[2024-04-09] MEDS: hyDROXYzine 25 mg Capsule 50 MG PO (11:29)
[2024-04-09] MEDS: acetaminophen 325 mg Tablet 650 MG PO (12:51)
--- NOTE | 2024-04-09 13:17 | PC.NURSE ---
Patient requested to go outside to relieve anxiety. Industrial Hygiene Technician took patient outside to the area between NPU and surgical services for approximately 15 min.
--- NOTE | 2024-04-09 15:20 | P.PN_ITS ---
Subjective 2 Subjective: Hospital course, labs appreciated. On examination patient sitting comfortably in bed. Remains on room air. Denies any nausea, vomiting, headache. Complaining of mild anxiety. He is anxious about discharge planning. He states he lives by himself and for now he does not feel strong enough to take care of his own needs. Vitals/I&O/Wt Last Vital Signs Temp 97.8 F 04/09/24 12:00 Pulse 90 04/09/24 12:00 Resp 18 04/09/24 12:00 BP 96/75 04/09/24 12:00 Pulse Ox 96 04/09/24 12:00 O2 Del Method Room Air 04/09/24 12:00 O2 Flow Rate 2 04/07/24 11:55 04/09/24 04/09/24 04/09/24 06:59 14:59 22:59 Intake Total 480 / 480 Output Total 750 / 2250 Balance -750 / -1770 480 / 480 Weight last 48 hrs Weight 54.885 kg Weight 54.885 kg Weight 43.4 kg Weight 55.2 kg Physical Exam 2 Const: COMMON NORMALS: no acute distress, patient oriented x3 and alert G ENERAL APPEARANCE: cooperative ORIENTATION/CONSCIOUSNESS: Yes awake HENMT: COMMON NORMALS: oropharynx normal Neck/C-Spine: COMMON NORMALS: no JVD Resp: COMMON NORMALS: normal respiratory effort, No retractions, No use of accessory muscles and clear to auscultation bilaterally AUSCULTATION: clear to auscultation bilaterally and wheezes Cardio: COMMON NORMALS: no JVD, regular rate, regular rhythm, S1 normal heart sound present, S2 normal heart sound present and No murmurs present (Cardio) RATE: regular rate RHYTHM: regular rhythm HEART SOUNDS: S1 normal heart sound present and S2 normal heart sound present GI: COMMON NORMALS: Normal to inspection, nondistended, normoactive bowel sounds present, Soft to palpation and non-tender PALPATION: Yes Soft to palpation Extremity: COMMON NORMALS: no joint enlargement, no calf tenderness and no pedal edema NARRATIVE EXTREMITY EXAM: DP PT pulses palpable, but diminished, no significant mottling lower extremities GENERAL: Yes edema (3+ BL edema, weeping) Neuro: COMMON NORMALS: patient oriented x3 and moves all extremities S ENSORIUM/ORIENTATION: Yes alert Psych: COMMON NORMALS: mental status grossly normal Skin: NARRATIVE SKIN EXAM: 1+ pitting edema lower extremities, DP P T pulses bilateral extremity palpable, no significant mottling Data 04/09/24 04:18 04/09/24 04:18 A&P Assessment and plan (1) Non-ST elevated myocardial infarction: Appreciate cardiology recommendations. Post PCI to LCx. No further chest pain. Appreciate echocardiogram showing EF of 55% with grade 1 diastolic dysfunction without regional wall motion abnormality, Continue with aspirin, Plavix, statin, low-dose beta-giovanni. Appreciate A1c, lipid panel. (2) Acute hypoxic respiratory failure: Most likely a combination of COPD in setting of emphysema exacerbation in setting of mild pneumonia. Also have diastolic heart failure. Oxygen supplementation keeping saturation over 90%. DuoNeb every 6 hours as needed. Continue with Augmentin for now. Will finish a 5-day course. Day 4/5 of appropriate antibiotics. Monitor for fluid overload. Currently euvolemic. (3) Emphysema lung: (4) Pneumonia: (5) Congestive heart failure: (6) Exertional dyspnea: (7) AGNES (acute kidney injury): Present on admission. Resolved. Most likely in setting of dehydration on admission. Monitor renal functions daily. Medical reconciliation done for nephrotoxic drugs. (8) Weight loss: (9) Physical deconditioning: (10) Protein calorie malnutrition: (11) Peripheral vascular disease: (12) Eosinophilia: Plan Weight loss, reported cancer history?: Most likely in setting of significant emphysema and COPD. Appreciate CT abdomen pelvis result. Severe protein calorie malnutrition, physical deconditioning PT and OT evaluation. Patient would like to go to SNF for further rehabilitation prior to discharge if possible. Bilateral lower extremity pain: In setting of peripheral vascular disease. Appreciate arterial duplex. Dual antiplatelet therapy as above. Eosinophilia: Unknown cause. Persistent. Do not have blood work from prior to this admission. Patient did have non-ST elevation with possible cardiac involvement on admission. Also found to have significant emphysema on CT abdomen/pelvis. Cannot rule out EGPA. Check peripheral smear, stool for ova and parasite. Check vitamin B12 level, HIV. Patient would benefit from hematology follow-up as an outpatient. Smoking addiction: Discussed with cessation for 4 minutes. He is not ready to quit. He states he will not be able to quit at home. He lives by himself. He states he does not smoke much and he smokes weak tobacco . Discussed with him risks of smoking, benefits of cessation. He understands, is not ready at this time. He is agreeable that he will likely need nicotine supplementation while in the hospital, agreeable to nicotine patches and lozenges. Full code Cardiac diet Lovenox for DVT prophylaxis Protonix for PUD prophylaxis Discharge plan: Patient lives by himself, has significant deconditioning with low BMI. Patient is interested in possible transition to SNF for rehabitation. Awaiting PT evaluation. Possible discharge to SNF versus home with home health depending on PT evaluation. Case management alerted. Attestations 2 Medical Necessity Statement*: Requires further hospitalization for management of non-ST elevation [place], hypoxic respiratory failure in setting of emphysema, pneumonia, diastolic heart failure, eosinophilia while safe discharge planning is sought. Diagnoses Non-ST elevated myocardial infarction I21.4 Acute hypoxic respiratory failure J96.01 Emphysema lung J43.9 Pneumonia J18.9 Congestive heart failure I50.9 Exertional dyspnea R06.09 AGNES (acute kidney injury) N17.9 Weight loss R63.4 Physical deconditioning R53.81 Protein calorie malnutrition E46 Peripheral vascular disease I73.9 Eosinophilia D72.10
[2024-04-09 15:52] LABS: LAB Peripheral Smear Sent for Review
[2024-04-09 16:51] LABS: HIV 1 & 2 Antibody Non-Reactive (Non-Reactiv); HIV 1 & 2 Antigen Non-Reactive (Non-Reactiv)
[2024-04-09] MEDS: metoprolol tartrate 25 mg Tablet 12.5 MG PO (18:25)
[2024-04-09] MEDS: nicotine 4 mg lozenge MUCOUS MEM (18:28)
[2024-04-09] MEDS: atorvastatin 40 mg Tablet PO (20:06)
[2024-04-10] VITALS (8 sets, daily range): BP systolic 91–116; BP diastolic 58–63; PULSE 59–73; RESP 15–20; TEMP 36.1–36.7; O2SAT 93–96
[2024-04-10] MEDS: amoxicillin-clav 875-125 mg Tablet 1 TAB PO ×2 (00:01→12:11)
[2024-04-10 03:22] LABS: Basophils # 0.1 10^3/uL (0.0-0.1); Basophils % 0.5 %; Eosinophils # 1.6 10^3/uL (0.0-0.8); Eosinophils % 14.3 %; Hematocrit 33.7 % (37-53); Lymphocytes # 1.9 10^3/uL (0.8-4.8); Lymphocytes % 16.9 %; Mean Corpuscular HGB Conc 31.2 g/dL (30-55); Mean Corpuscular Hemoglobin 27.1 pg (27-33); Mean Corpuscular Volume 87.1 fl (82-101); Mean Platelet Volume 8.4 fL (7.4-10.4); Monocytes # 0.9 10^3/uL (0.2-0.9); Monocytes % 7.9 %; Neutrophils # 6.74 10^3/uL (1.8-7.7); Neutrophils % 59.4 %; Nucleated Red Blood Cells % 0 %; Platelet Count 371 10^3/cmm (157-399); Red Blood Count 3.87 10^6/uL (3.85-5.65); Red Cell Distribution Width 17.1 % (12.1-15.1); White Blood Count 11.35 10^3/uL (3.29-11.43)
[2024-04-10 03:48] LABS: Alanine Aminotransferase 26 U/L (0-41); Albumin Level 3.2 g/dL (3.5-5.2); Alkaline Phosphatase 74 U/L (40-130); Anion Gap 13.2 (5-19); Aspartate Amino Transferase 34 U/L (0-40); Blood Urea Nitrogen 17 mg/dL (8-23); Calcium 8.6 mg/dL (8.5-10.5); Carbon Dioxide 23 mmol/L (22-29); Chloride 106 mmol/L (98-107); Creatinine Clr Calc Pharmacy 55.5843; Globulin 3.3 g/dL (1.3-4.6); Glucose 101 mg/dL (65-115); Osmolality Calculated 288 mOsm/kg (285-295); Potassium 4.2 mmol/L (3.5-5.1); Sodium 138 mmol/L (136-145); Total Bilirubin 0.2 mg/dL (0.15-1.2); Total Protein 6.5 g/dL (6.6-8.7)
[2024-04-10 03:49] LABS: Magnesium 1.9 mg/dL (1.7-2.3)
[2024-04-10] MEDS: levothyroxine 25 mcg Tablet PO (05:41)
[2024-04-10] MEDS: calcium carbonate 500 mg Chew Tablet PO (07:56)
[2024-04-10] MEDS: gabapentin 300 mg Capsule PO ×2 (07:58→18:57)
[2024-04-10] MEDS: metoprolol tartrate 25 mg Tablet 12.5 MG PO ×2 (07:58→18:57)
[2024-04-10] MEDS: sucralfate 1 gm Tablet PO ×2 (07:59→14:58)
[2024-04-10] MEDS: aspirin 81 mg EC Tablet PO (07:59)
[2024-04-10] MEDS: pantoprazole 40 mg SDV IVP (07:59)
[2024-04-10] MEDS: clopidogrel 75 mg Tablet PO (07:59)
--- NOTE | 2024-04-10 09:41 | PC.CHAP ---
Pastoral Care Encounter/Spiritual Assessment Type of Contact [] Declined logistics planner visit [] Patient/Family/Request visit [] Outpatient visit [] Follow-up visit [] Physician referral [] Code/Alert [x] Routine visit [] Staff referral [] Actively dying [] Patient sleeping [] Family support [] [] Out of room [] Palliative care [] [] Receiving care in room [] Pre-surgical visit [] Trauma [] Long length of stay [] ICU visit [] Other: Relational/Emotional Strength [x] Patient feels connected with others/family/visitors/staff [] Distress [] Loneliness/isolation [] Abandonment Spirituality of Patient [x] Person of Kezia [] Attends Islam of their [place] [x] Believes in Prayer [] Reads Bible or Mandaen materials [] There are Spiritual issues to be addressed Aircraft Restorer Interventions [x] Prayer [x] Active listening [x] Non-anxious presence [x] Spiritual/emotional support [] Crisis/trauma care [] Spiritual counseling [] Bereavement support [] Provided bereavement packet [] Provided Bible/devotional materials [] Provided toy/stuffed animal, coloring book to patient or family member [] Provided Communion [] Anointing/[place] [] Salvation [x] Completed spiritual assessment [] Other: Impact on Illness or Injury [] Angry [] Fearful [] Anxious [] Often cries [] Exhaustion [] Unable to work [] Unable to attend amish [] Unable to walk/stand [] Unable to read [] Unable to drive [] Unable to eat/drink [] Unable to sleep [] Unable to be with family [] Patient intubated [] Other: Summary Time spent with patient 5 min
--- NOTE | 2024-04-10 12:29 | P.DS_ITS ---
Discharge Providers Date of Admission: 04/04/24 21:19 Date of Discharge: April 10, 2024 Attending Provider at Admission: Haider Cuello Attending Provider at Discharge: Leonides Rodriguez MD Consults: Cardiology: Dr. Bauer/Hubert Diagnoses at Discharge Discharge Diagnosis (1) Non-ST elevated myocardial infarction: Status: Acute (2) Acute hypoxic respiratory failure: Status: Acute (3) Emphysema lung: Status: Acute (4) Pneumonia: Status: Acute (5) Congestive heart failure: Status: Acute (6) Exertional dyspnea: Status: Acute (7) AGNES (acute kidney injury): Status: Acute (8) Weight loss: Status: Acute (9) Physical deconditioning: Status: Acute (10) Protein calorie malnutrition: Status: Acute (11) Peripheral vascular disease: Status: Acute (12) Eosinophilia: Status: Acute Reason for Visit Reason for Visit: SOB pulse low. no energy Brief History: History as per HPI: Pleasant 73-year-old gentleman who moved down here about 3 and half years ago from [place], has not established with a primary provider, has history of smoking, beginning emphysema, apart from also some insomnia for which she takes some trazodone and smokes some marijuana intermittently, denies history of other medical problems, has not been feeling well for the last several months which has been worsening with significant exertional fatigue, intolerance, dyspnea on exertion, lower extremity edema which has been causing pain in his dorsal feet. He states he came in to get things checked at [facility] about a month ago but states not much workup was done. He also does not really like staying in [facility] says he gets cold. He denies chest pain or pressure, although reportedly had noted some chest pressure in the past to the ER physician. He had not had any fever, chills, sore throat, no sneezing coughing or other symptoms of upper or lower respiratory infection, no nausea vomiting or diarrhea. In ER he is found to have a leukocytosis 12.6, afebrile, sodium 135, BUN 31, creatinine 1.3, with baseline troponin 220, NT proBNP 1470. Albumin 3.3. No ST elevation on EKG. Venous duplex in ER without evidence of DVT. Arterial duplex with proximal right superficial femoral artery peak systolic velocity mildly elevated at 151 cm/s, corresponding to 30-49% stenosis. Chest x-ray with changes consistent with COPD. Hospital Course Hospital Course Patient was admitted to the hospital further evaluation and management of hypoxia in setting of congestive pneumonia, AGNES and non-ST elevation IL. He was started on broad-spectrum antibiotics, ACS treatment with dual antiplatelet therapy, heparin drip. Cardiology was consulted and he underwent cardiac stress test in which she was found to have a small area of reversible defect in mid inferior lateral region suggestive of ischemia and treated. He underwent cardiac angiogram on 04/07 where he underwent PCI to mid LCx. Patient's hospitalization was otherwise unremarkable. He responded well to the treatment and has been on room air at his baseline respiratory status over the last 48 to 72 hours. He was transitioned over to oral antibiotics. During hospitalization patient was found to have significant eosinophilia for which further workup was sent during peripheral smear. Further workup showed negative HIV, B12. Stool for ova and parasite is pending. Given significant physical deconditioning physical therapy evaluation was requested to determine patient need to be transferred to SNF for further rehabilitation. Patient was agreeable and has been discharged to SNF in hemodynamically stable condition on dual antiplatelet therapy, low-dose beta- giovanni and levothyroxine with advised to follow-up with primary care provider within next 1 week and cardiology nurse practitioner within next 2 weeks Discharge Data Studies Completed and Pending Completed Studies During Hospitalization Category Date Time Status CT abdomen pelvis wo con [id number] Stat Cat Scan 04/05/24 08:[address] angio chest PE protcl [id number] Stat Cat Scan 04/05/24 08:52 Completed [employer] request for service Routine Exams 04/07/24 Completed Cardiac Stress Test MIBI [Sestamibi Stress Test Request Exams 04/06/24 09:45 Completed ] Routine XR chest 1V portable [id number] Routine Exams 04/06/24 07:00 Completed XR chest 1V portable [id number] Stat Exams 04/04/24 19:16 Completed NM david perf SPECT r/s* [id number] Routine Nuc Med 04/06/24 17:49 Completed CV. echo complete* [id number] Routine Ultrasound 04/04/24 22:11 Completed US arterial duplex lower extremity bilat [CV arterial Ultrasound 04/04/24 19:16 [place] [id number]] Stat US venous duplex lower extremity bilat [CV venous Ultrasound 04/04/24 19:16 [place] [id number]] Stat Pending at discharge Category Date Time Status MAG [Magnesium] AM LABS Lab 04/11/24 04:00 Ordered MAG [Magnesium] AM LABS Lab 04/12/24 04:00 Ordered OVA and Parasites, Conc and PE Routine Lab 04/09/24 09:39 Uncollected Radiology Impressions Duplex Scan Lower Extremity Artery 04/04/24 19:16 IMPRESSION: Proximal right superficial femoral artery peak systolic velocity is mildly elevated at 151 cm/s. This corresponds to between 30 and 49% stenosis. Venous Duplex 04/04/24 19:16 IMPRESSION: No evidence of deep vein thrombosis. Abdomen/Pelvis CT 04/05/24 08:52 IMPRESSION: 1. Extensive sigmoid diverticulosis. No evidence of acute diverticulitis. 2. Cholecystectomy. 3. Low-attenuation lesions in the LEFT hepatic lobe likely small hepatic cysts. 4. No hydronephrosis in either kidney. 5. No abdominal or pelvic lymphadenopathy. 6. Prior kyphoplasty changes L3. 7. No other suspicious findings. Chest CTA 04/05/24 08:52 IMPRESSION: 1. No evidence of pulmonary embolus. 2. Advanced chronic emphysematous changes. 3. Slight hazy opacities in the lung bases with bibasilar atelectasis. Chest X-Ray 04/06/24 07:00 IMPRESSION: Chronic lung changes with no acute abnormality. Echocardiogram CONCLUSIONS Normal left ventricular size, systolic function and wall thickness, with no regional wall motion abnormalities. Left ventricular ejection fraction is estimated at 55 %. Grade I/IV diastolic dysfunction (abnormal relaxation filling pattern), normal to mildly elevated filling pressures. Moderate aortic valve calcification. No aortic valve stenosis. Thickening of Aortic valve.mild aortic valve regurgitation. Thickened mitral valve. No mitral valve stenosis. Mild mitral valve regurgitation. There is no pericardial effusion. Right atrial pressure is around 5 mm of mercury. Teena Dinero MD (Electronically Signed) Final Date: 05 April 2024 Laboratory Results WBC 11.35 10^3/uL (3.29-11.43) 04/10/24 02:49 RBC 3.87 10^6/uL (3.85-5.65) 04/10/24 02:49 Hgb 10.50 g/dL (11.27-16.99) L 04/10/24 02:49 Hct 33.7 % (37-53) L 04/10/24 02:49 MCV 87.1 fl (82-101) 04/10/24 02:49 MCH 27.1 pg (27-33) 04/10/24 02:49 MCHC 31.2 g/dL (30-55) 04/10/24 02:49 RDW 17.1 % (12.1-15.1) H 04/10/24 02:49 Plt Count 371 10^3/cmm (157-399) 04/10/24 02:49 MPV 8.4 fL (7.4-10.4) 04/10/24 02:49 Neut % (Auto) 59.4 % 04/10/24 02:49 Lymph % (Auto) 16.9 % 04/10/24 02:49 [place] % (Auto) 7.9 % 04/10/24 02:49 Eos % (Auto) 14.3 % 04/10/24 02:49 Baso % (Auto) 0.5 % 04/10/24 02:49 Neut # (Auto) 6.74 10^3/uL (1.8-7.7) 04/10/24 02:49 Lymph # (Auto) 1.9 10^3/uL (0.8-4.8) 04/10/24 02:49 [place] # (Auto) 0.9 10^3/uL (0.2-0.9) 04/10/24 02:49 Eos # (Auto) 1.6 10^3/uL (0.0-0.8) H 04/10/24 02:49 Baso # (Auto) 0.1 10^3/uL (0.0-0.1) 04/10/24 02:49 Nucleated RBC % (auto) 0 % 04/10/24 02:49 Nucleated RBCs # 0.0 /100WBC 04/10/24 02:49 Peripher Smr Path Cons Sent for review 04/09/24 04:18 D-Dimer 8.25 ug/mLFEU (0-0.59) H 04/05/24 09:54 Sodium 138 mmol/L (136-145) 04/10/24 02:49 Potassium 4.2 mmol/L (3.5-5.1) 04/10/24 02:49 Chloride 106 mmol/L (98-107) 04/10/24 02:49 Carbon Dioxide 23 mmol/L (22-29) 04/10/24 02:49 Anion Gap 13.2 (5-19) 04/10/24 02:49 BUN 17 mg/dL (8-23) 04/10/24 02:49 Creatinine 1.0 mg/dL (0.7-1.2) 04/10/24 02:49 GFR Calculation Not Reportable 04/10/24 02:49 Glucose 101 mg/dL (65-115) 04/10/24 02:49 Estimat Average Glucose 105 04/05/24 02:06 Hemoglobin A1c 5.3 % (4.0-6.0) 04/05/24 02:06 Calculated Osmolality 288 mOsm/kg (285-295) 04/10/24 02:49 Lactic Acid 1.1 mmol/L (0.5-2.2) 04/04/24 19:55 Calcium 8.6 mg/dL (8.5-10.5) 04/10/24 02:49 Magnesium 1.9 mg/dL (1.7-2.3) 04/10/24 02:49 Iron 44 ug/dL (59-158) L 04/09/24 04:18 TIBC 189 mcg/dl 04/09/24 04:18 % Saturation 23.2 % (20-50) 04/09/24 04:18 Unsat Iron Binding 145 ug/dL (112-347) 04/09/24 04:18 Total Bilirubin 0.2 mg/dL (0.15-1.2) 04/10/24 02:49 AST 34 U/L (0-40) 04/10/24 02:49 ALT 26 U/L (0-41) 04/10/24 02:49 Alkaline Phosphatase 74 U/L (40-130) 04/10/24 02:49 Troponin T 5th Gen ng/L 322 ng/L (0-15) H* 04/05/24 08:32 Troponin T Baseline 220 ng/L (0-15) H* 04/04/24 19:55 Troponin T 120 Minute 248.9 ng/L (0-15) H 04/04/24 22:07 Delta Troponin T 28.9 ABS# (0-10) H* 04/04/24 22:07 Troponin T Hi Sens 6Hr 272.4 ng/L (0-15) H 04/05/24 02:06 Troponin T Hi Sens 6Hr Delta 52.4 ng/L (0-12) H* 04/05/24 02:06 C-Reactive Protein 21.6 mg/L (0.0-4.9) H 04/08/24 03:34 NT-Pro-B Natriuret Pep 1464 pg/mL (0-125) H 04/08/24 03:34 Total Protein 6.5 g/dL (6.6-8.7) L 04/10/24 02:49 Albumin 3.2 g/dL (3.5-5.2) L 04/10/24 02:49 Globulin 3.3 g/dL (1.3-4.6) 04/10/24 02:49 Triglycerides 83 mg/dL (0-150) 04/05/24 02:06 Cholesterol 136 mg/dL (0-200) 04/05/24 02:06 LDL Cholesterol, Calc 81 mg/dL (50-129) 04/05/24 02:06 HDL Cholesterol 38 mg/dL (60-100) L 04/05/24 02:06 LDL/HDL Ratio 2.13 RATIO (0.00-3.22) 04/05/24 02:06 Cholesterol/HDL Ratio 3.58 mg/dL (1.0-5.00) 04/05/24 02:06 Vitamin B12 1456 pg/mL (232-1245) H 04/09/24 04:18 Folate 7.0 ng/mL (4.5-32.2) 04/10/24 02:49 Procalcitonin 0.34 ng/mL (0-0.5) 04/08/24 03:34 TSH 7.35 uIU/mL (0.27-4.20) H 04/05/24 02:06 Free T4 1.19 ng/dL (0.82-1.77) 04/05/24 02:06 Free T3 2.0 PG/ML (2.0-4.4) 04/05/24 02:06 Random Cortisol 13.80 ug/dL (2.47-19.5) 04/10/24 02:49 Urine Color Yellow (Yellow) 04/06/24 17:05 Urine Appearance Clear (CLEAR) 04/06/24 17:05 Urine pH 7.5 (5-7) 04/06/24 17:05 Ur Specific [place] 1.019 (1.005-1.030) 04/06/24 17:05 Urine Protein 1+ (Negative) A 04/06/24 17:05 Urine Glucose (UA) Negative (Normal) 04/06/24 17:05 Urine Ketones Negative (Negative) 04/06/24 17:05 Urine Blood Negative (Negative) 04/06/24 17:05 Urine Nitrate Negative (Negative) 04/06/24 17:05 Urine Bilirubin Negative (Negative) 04/06/24 17:05 Urine Urobilinogen 0.2 mg/dL (Negative) 04/06/24 17:05 Ur Leukocyte Esterase Negative (Negative) 04/06/24 17:05 Urine RBC 0-2 /hpf (0-2) 04/06/24 17:05 Urine WBC 0-5 /hpf (0-5) 04/06/24 17:05 Ur Squamous Epith Cells 0-5 /hpf (0-5) 04/06/24 17:05 Amorphous Sediment Not Reportable 04/06/24 17:05 Urine Bacteria None seen /hpf (NONE) 04/06/24 17:05 Hyaline Casts 0.40 /lpf 04/06/24 17:05 Hepatitis A IgM Ab Non-reactive (Nonreactive) 04/04/24 19:53 Hep Bs Antigen Non-reactive (Nonreactive) 04/04/24 19:53 Hep B Core IgM Ab Non-reactive (Nonreactive) 04/04/24 19:53 Hepatitis C Antibody Non-reactive (Nonreactive) 04/04/24 19:53 HIV 1&2 Ab & HIV 1 Ag Non-reactive (Non-Reactiv) 04/09/24 04:18 HIV 1&2 Antibody Non-reactive (Non-Reactiv) 04/09/24 04:18 Procedures Performed Cardiac catheterization: Diagnostic Cath Status: Urgent Diagnostic Findings * Left Main has no significant disease. * Left Anterior Descending has mild diffuse luminal irregularities. * Mid Circumflex: subtotal 99% occlusion, EMIGDIO: 2 flow. * Proximal Right Coronary Artery to Mid Right Coronary Artery: mild 40% stenosis, EMIGDIO: 3 flow. * Proximal Circumflex: moderate 50% stenosis, EMIGDIO: 3 flow. * 1st Diagonal: obstructive 70% stenosis, EMIGDIO: 3 flow. * Coronary angiography shows right dominance. PCI Status: Urgent PCI Indication: Other Interventional Findings * Procedure detail: We engaged left main artery with XB 3.5 guide catheter. IV heparin was administered to maintain anticoagulation. After several attempts to wire the left circumflex artery we decided to use super cross microcatheter as left circumflex artery has a retroflexed course. With the wiring the mid left circumflex artery had dissection. We predilated the stenosis with 2.0 x 15 mm semicompliant balloon. This was followed by placement of 2.5 x 30 mm resolute Nicole drug-eluting stent with GuideLiner support. At this time final angiogram was performed that showed excellent stent expansion. IVUS was used to confirm no uncovered dissection. 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 . * Mid Circumflex: 99% stenosis treated with a AB MINI TREK 2.00X15 RX BALLOON, and DEEJAY Rausch NICOLE 2.5X30 ANGIE. 0% residual stenosis, EMIGDIO: 3 flow. Conclusions 1. 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 2. Mid Circumflex was treated with a Balloon, and Drug Eluting Stent Vitals Last Vital Signs Temp 96.9 F L 04/10/24 11:41 Pulse 64 04/10/24 11:41 Resp 17 04/10/24 11:41 BP 91/61 04/10/24 11:41 Pulse Ox 96 04/10/24 11:41 O2 Del Method Room Air 04/10/24 11:41 O2 Flow Rate 1 04/10/24 04:00 Discharge Plan Discharge Patient Disposition: Home Condition: Stable Prescriptions: New aspirin 81 mg Tablet,Delayed Release (Dr/Ec) 81 mg PO DAILY Qty: 30 0RF amoxicillin-pot clavulanate 875-125 mg Tablet 1 tab PO Q12H Qty: 6 0RF atorvastatin 40 mg Tablet 40 mg PO BEDTIME Qty: 30 0RF clopidogrel 75 mg Tablet 75 mg PO DAILY Qty: 30 0RF levothyroxine 25 mcg Tablet 25 mcg PO QAM Qty: 30 0RF gabapentin 300 mg Capsule 300 mg PO BID Qty: 60 0RF metoprolol tartrate 25 mg Tablet 12.5 mg PO BID 30 Days Qty: 30 0RF Continued sucralfate 1 gram tablet 1 g PO QID ondansetron HCl 4 mg tablet 4 mg PO TID PRN (Reason: Nausea And Vomiting) hydroxyzine HCl 50 mg tablet 50 mg PO TID PRN (Reason: Anxiety) tramadol 50 mg tablet 50 mg PO TID PRN (Reason: Pain) metoclopramide HCl 5 mg tablet 5 mg PO TID PRN (Reason: Nausea/Bloating) Discharge Orders: Discharge Order (Routine); Ordered 04/10/24 Ordered By: Leonides Rodriguez Referrals: Mary Grace Gaspar MD [Physician] - 1 month Marine Leyva FNP [Nurse Practitioner] - 2 weeks Discharge Diet: Cardiac Discharge Activity: Resume usual activity and Increase activity as tolerated Patient Instructions: Metoprolol (By mouth) (Lopressor, Toprol XL), Levothyroxine (By mouth) (Levothroid, Levoxyl, Synthroid, Tirosint), Aspirin (By mouth), Amoxicillin (By mouth), Gabapentin (By mouth) (Neurontin, FusePaq Fanatrex, [place],..., Atorvastatin (By mouth), Clopidogrel (By mouth) (Plavix), Coronary Angioplasty (DC), Acute Kidney Injury (DC), CHF Stoplight, Opioid Safety, Post Angiogram Home Care Instructions, Pneumonia Stoplight Activity Restrictions/Additional Instructions: Follow-up with a primary care provider within next 1 week. You should have a repeat CBC done in next 1 week and if you have persistent eosinophilia should follow-up with hematology team as an outpatient within next 1 month. Continue to increase your physical activities. Follow-up with cardiology nurse blood pressure over the next [address] Gaspar again next 1 month. Discharge Attestations Time Spent in Discharge Care*: greater than 30 min Specific Discharge Activities: educating patient, discussing with pcp/other providers, discussing with disability case manager/social workers/dc planners, documenting/other paperwork and evaluating patient/reviewing data Status at Discharge: Cognitive status at discharge: cognitively intact , Behavioral status at discharge: cooperative , Functional status at discharge: uses cane/walker , Overall status at discharge: patient is progressing back to baseline Quality Metrics Clinical Quality Measures [ Acute Myocardial Infaction { Clinical Trial Participant: No; Contraindication to aspirin: None; Aspirin prescribed; Contraindication to statin: None; Statin prescribed; Contraindication to PCI: None; PCI performed;}] Coding Level of Care Code 50350 Total time (in minutes) for Discharge: 60 Diagnoses Non-ST elevated myocardial infarction I21.4 Acute hypoxic respiratory failure J96.01 Emphysema lung J43.9 Pneumonia J18.9 Congestive heart failure I50.9 Exertional dyspnea R06.09 AGNES (acute kidney injury) N17.9 Weight loss R63.4 Physical deconditioning R53.81 Protein calorie malnutrition E46 Peripheral vascular disease I73.9 Eosinophilia D72.10
--- NOTE | 2024-04-10 14:00 | PC.NURSE ---
called [facility] for rehab. talked to Annelise charge nurse.report given about discharge instruction papers.
[2024-04-10] MEDS: simethicone 80 mg Chew PO (14:58)
[2024-04-10] MEDS: nicotine 4 mg lozenge MUCOUS MEM ×2 (14:58→18:56)
--- NOTE | 2024-04-10 16:02 | PC.NURSE ---
waiting for ambulance transport
--- NOTE | 2024-04-10 17:42 | PC.NURSE ---
[facility] called and they said they will not come and get the pt until midnight. pt informed. a little upset about the situation. reassured pt.
[2024-04-10] MEDS: hyDROXYzine 25 mg Capsule 50 MG PO (19:00)
== END 2024-04-10 18:45 | disposition skilled nursing facility (03) | DRG 321 ==
LOC: ER 20:53 → CSU 21:20
PROVIDERS: Family Medicine; Internal Medicine; Admitting Provider Internal Medicine; Emergency Provider Emergency Medicine; Visit Provider Student in an Organized Health Care Education/Training Program
PROC: 027034Z Dilation of Coronary Artery, One Artery with Drug-eluting Intraluminal Device, Percutaneous Approach (ICD-10-PCS; principal; 2024-04-07 07:00)
PROC: 027034Z Dilation of Coronary Artery, One Artery with Drug-eluting Intraluminal Device, Percutaneous Approach (ICD-10-PCS; 2024-04-07 07:00)
DX: I21.4 Non-ST elevation (NSTEMI) myocardial infarction (principal); I50.31 Acute diastolic (congestive) heart failure; J96.01 Acute respiratory failure with hypoxia; J18.9 Pneumonia, unspecified organism; J18.8 Other pneumonia, unspecified organism; N17.9 Acute kidney failure, unspecified; E46 Unspecified protein-calorie malnutrition; Z68.1 Body mass index [BMI] 19.9 or less, adult; F17.210 Nicotine dependence, cigarettes, uncomplicated; J43.9 Emphysema, unspecified; I73.9 Peripheral vascular disease, unspecified; D72.10 Eosinophilia, unspecified; G47.00 Insomnia, unspecified; D64.9 Anemia, unspecified; I25.10 Atherosclerotic heart disease of native coronary artery without angina pectoris; E03.9 Hypothyroidism, unspecified; E86.0 Dehydration
CPT/HCPCS: 36415; 71045; 71275; 74176; 78452; 80048; 80053; 80061; 80074; 80503; 81001; 82533; 82607; 82746; 83036; 83540; 83550; 83605; 83735; 83880; 84145; 84439; 84443; 84481; 84484; 85025; 85347; 85378; 86140; 87040; 87806; 92523; 92526; 92610; 92978; 93005; 93017; 93306; 93454; 93925; 93970; 96372; 96374; 96376; 97161; 99152; 99153; 99285; A9500; C1725; C1753; C1769; C1874; C1887; C1894; C9600; J0456; J0696; J1644; J1650; J1940; J2250; J2270; J2405; J2470; J2785; J3010; J3490; J7030; J7050; Q0163; Q9967

== ENCOUNTER → 2024-06-07 14:11 | Outpatient (BNVA) | payer MEDICARE, SELFPAY | PROVIDERS: Visit Provider Nurse Practitioner Family | DX: I25.10 Atherosclerotic heart disease of native coronary artery without angina pectoris (principal); I25.2 Old myocardial infarction; F17.210 Nicotine dependence, cigarettes, uncomplicated; L97.909 Non-pressure chronic ulcer of unspecified part of unspecified lower leg with unspecified severity | CPT/HCPCS: 99214 ==

== ENCOUNTER 2024-06-25 10:18 | Outpatient (CLI) | payer MEDICARE, SELFPAY ==
--- NOTE | 2024-06-25 | ECG_ITS ---
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 Interpretive Statements LEXISCAN: Procedure: At the baseline, the blood pressure was 110/81 mmHg with a heart rate of 44 bpm. The electrocardiogram showed sinus bradycardia, normal axis with normal ST and T's. The Lexiscan was infused over a period of 20 seconds. A total of 0.4 mg of Lexiscan was infused. The stress phase was continued for a total of 5 minutes. Heart rate was at the end of stress phase was 64 bpm and a blood pressure of 102/62 mmHg. The EKG at the peak infusion revealed normal sinus rhythm with no significant ST-T wave changes. Sestamibi was injected 20 seconds after the Lexiscan infusion. Blood pressure at the end of recovery phase was 101/61 mmHg with a heart rate of 63 bpm. Conclusion: 1. Normal EKG response to Lexiscan infusion 2. No Lexiscan induced chest pain or cardiac arrhythmia. 3. Normal blood pressure and heart rate response. 4. Sestamibi/sestamibi perfusion scan pending; see separate report. Electronically Signed On 07-03-2024 23:13:58 ELDERLY CAREGIVER by Jose Daniel Bauer M.D. [email or web address]
--- NOTE | 2024-06-25 10:46 | NMCV_ITS ---
NM david perf SPECT r/s* [id number] Papo White Age: 73 Gender: M : 1950 Exam Date: 06/25/2024 10:46 Ordering Phys: Marine Leyva Technologist: CARI Valdez Exam Location: [facility] Indications: CP STRESS TEST Please see separate stress test report in [facility] for full findings IMAGE PROTOCOL Rest/Stress 1 Lexiscan Day Radiopharmaceutical Dose (mCi) Administration Site Administered by Rest: Tc-99m 10.7 IV CARI Valdez Sestamibi Stress:Tc-99m 32.6 IV CARI Do Sestamibi Rest: 25-Jun-2024 60 Discovery 630 Stress: 25-Jun-2024 30 Discovery 630 0.4mg Lexiscan. Images obtained in supine and prone position. SPECT RESULTS Technical Quality: Good Raw Data Analysis: Normal Image Corrections: No attenuation or motion correction applied Summed Stress Score: 2 Summed Rest Score: 5 Summed Difference Score: 1 PERFUSION FINDINGS There is small area of reduced radiotracer uptake seen in the apical lateral/lateral wall that resolves on prone imaging. This is consistent with attenuation artifact. No evidence of ischemia. FUNCTIONAL RESULTS (calculated via Gated SPECT) Stress Image LV EF (%): 62 Stress EDV (mL):95 TID: 1.04 Stress ESV (mL):36 FUNCTIONAL FINDINGS: There is normal left ventricular systolic function. IMPRESSIONS 1. Attenuation artifact seen in the distribution of left circumflex artery territory. No evidence of ischemia 2. LV systolic function is normal Jose Daniel Bauer MD (Electronically Signed) Final Date: 25 June 2024 13:12 S
[2024-06-25 10:47] VITALS: BMI 19.8
[2024-06-25] MEDS: regadenoson 0.4 Mg/5 ml Syringe IVP (11:51)
[2024-06-25 12:01] VITALS: BP 105/65; PULSE 63
== END 2024-06-25 10:19 | disposition home or self-care (01) ==
LOC: CDL 10:19
PROVIDERS: PCP Nurse Practitioner Family; Visit Provider Nurse Practitioner Family
DX: I21.4 Non-ST elevation (NSTEMI) myocardial infarction (principal); R06.09 Other forms of dyspnea; I25.10 Atherosclerotic heart disease of native coronary artery without angina pectoris
CPT/HCPCS: 36415; 78452; 93017; 96374; A9500; J2785

== ENCOUNTER → 2024-07-23 14:38 | Outpatient (BNVA) | payer MEDICARE, SELFPAY | PROVIDERS: PCP Nurse Practitioner Family; Visit Provider Internal Medicine | DX: I25.10 Atherosclerotic heart disease of native coronary artery without angina pectoris (principal); R00.1 Bradycardia, unspecified; F17.210 Nicotine dependence, cigarettes, uncomplicated | CPT/HCPCS: 99214 ==

== ENCOUNTER → 2024-12-06 13:56 | Outpatient (BNVA) | payer MEDICARE, MEDICAID, SELFPAY | PROVIDERS: PCP Nurse Practitioner Family; Visit Provider Internal Medicine | DX: I25.10 Atherosclerotic heart disease of native coronary artery without angina pectoris (principal); R00.1 Bradycardia, unspecified; F17.210 Nicotine dependence, cigarettes, uncomplicated | CPT/HCPCS: 99214 ==